=== PATIENT | female | born 1990 | race Caucasian/White ===

== ENCOUNTER → 2018-05-10 19:04 | Outpatient (CLI) | payer OTHER, SELFPAY ==
[2018-05-16 14:39] LABS: HPV Reflexed? NOT INDICATED
== END ==
PROVIDERS: Visit Provider Obstetrics & Gynecology
DX: Z12.4 Encounter for screening for malignant neoplasm of cervix (principal)
CPT/HCPCS: 88175; G0145

== ENCOUNTER → 2018-10-05 11:17 | Outpatient (CLI) | payer OTHER, SELFPAY ==
[2018-10-05 15:26] LABS: hCG Titer Quant., Serum 4946 mIU/mL (<9 non-preg)
== END ==
PROVIDERS: Visit Provider Obstetrics & Gynecology
DX: N92.5 Other specified irregular menstruation (principal)
CPT/HCPCS: 36415; 84702

== ENCOUNTER → 2018-10-12 11:20 | Outpatient (CLI) | payer OTHER, SELFPAY ==
[2018-10-12 13:54] LABS: Hematocrit 38.9 % (37-47); Hemoglobin 13.6 g/dl (12.0-15.0); Mean Corpuscular Hgb 31.5 pg (27.0-32.0); Mean Platelet Vol. 10.1 fl (6.2-12.0); Platelet Count 207 K/mm3 (150-450); RBC Distribution Width CV 12.2 % (11.6-14.6); RBC Distribution Width SD 39.2 fl (35.1-43.9); Red Blood Count 4.32 M/mm3 (4.2-5.4); Scan Indicated on CBC? Y/N NO; White Blood Count 5.2 K/mm3 (4.4-11.0)
[2018-10-12 14:19] LABS: hCG Titer Quant., Serum 14132 mIU/mL (<9 non-preg)
== END ==
PROVIDERS: Visit Provider Obstetrics & Gynecology
DX: O20.0 Threatened abortion (principal); Z3A.00 Weeks of gestation of pregnancy not specified
CPT/HCPCS: 36415; 84702; 85027; 86850; 86900

== ENCOUNTER 2018-10-27 11:35 | Day surgery (SDC) | payer OTHER, SELFPAY ==
--- NOTE | 2018-10-26 20:55 | PCM.HP.STD ---
History of Present Illness Date of Admission: 10/27/18 Chief Complaint: Intrauterine demise of twin at 6 weeks The patient is a 27 year old F at 6 weeks EGA. Spencer-mono twin and demise x 2. Minimal bleeding. Rh+. Past Medical History Allergies No Known Allergies Allergy (Verified 10/26/18 15:11) Home Medications: Ambulatory Orders Medication Instructions Recorded Vits [Prenatabs FA] 1 tablet PO DAILY 10/26/18 Smoking Status: Never smoker Tobacco Use: Non-smoker Review of Systems Constitutional: Denies: Chills, Fever, Weight Change HEENT: Denies: Difficulty Hearing, Difficulty Swallowing, Nasal bleeding, Nasal Congestion, Sore Throat Cardiovascular: Denies: Chest Pain, Palpitations Respiratory: Denies: Shortness of Breath, Wheezing Gastrointestinal: Denies: Constipation, Diarrhea, Nausea, Vomiting Genitourinary: Denies: Dysuria, Frequency, Hematuria, Incontinence, Urgency Musculoskeletal: Denies: Joint Pain, Muscle pain Skin: Denies: Lesions, Skin Changes Neurological: Denies: Focal weakness, Numbness Psychiatric: Denies: Anxiety, Depression Endocrine: Denies: Heat/ Cold Intolerance Hematologic/ Lymphatic: Denies: Easy Bleeding VTE Information - Inpt Only VTE Present on Admission: No VTE Mechan Device Prophylaxis: SCD's VTE Pharm Prophylaxis ordered?: No Reason prophylaxis not ordered:: Treatment Not Indicated Subjective: Healthy appearing female. No distress. - Physical Exam General: Alert, Oriented x3 HEENT: Atraumatic, Normocephalic Oral: Moist Mucosa Neck: Supple Lungs: Clear to auscultation Cardiovascular: Regular rate, Regular Rhythm Abdomen: Bowel Sounds Present, Soft, Non Tender, Non-Distended Extremities: No edema, No Calf Tenderness Skin: No rashes Musculoskeletal: No Muscle Wasting Neurological: Cranial nerves II-XII grossly intact Assessment/Plan 1. IUFD Twin at 6 weeks RH + options for tissue elimination reviewed. Decision for suction D and C. The preop preparation, then intraop procedures and the postop recovery reviewed. The risks of bleeding, infection and other organ damage including bladder, bowel and uterine perforation accepted, reviewed and consented. Blood transfusion if required accepted as well.
--- NOTE | 2018-10-27 | POC_PTH ---
PATIENT: KATHARINE PINZON LOC: [facility] U#:[id number] AGE/SX: 27/F ROOM: RE10/27/[address]: Dr. Glenys Jasso MD : 1990 BED: DIS: 10/27/2018 SPEC #: [id number] RECD: 10/27/18 14:44 STATUS: MELLISA CAROLINE #: [id number] JAMIE: 10/27/18 00:[address]: Glenys Jasso DEPT: SURGICAL PATHOLOGY RECD BY: Riley Cisse ENTERED: 10/27/18 14:44 SP TYPE: PROD CONC OTHR DR: No Primary Care Phys Tissues: Product of conception, NOS Procedures: Surgery Specimen Level IV HEADER OPERATION: Dilation and curettage, suction PRE-OP DIAGNOSIS: Intrauterine demise of twin at six weeks, LMP unknown TISSUE SUBMITTED: Products of conception sent for chromosomal studies MICROSCOPIC DIAGNOSIS Endometrium, curettage: Chorionic villi, decidualized stroma and trophoblastic cells consistent with products of conception. AM:esha 10/30/18 MICROSCOPIC DESCRIPTION Slides are reviewed. GROSS DESCRIPTION Received in fixative is one container labeled with the patient's name and designated products of conception to be sent for chromosomal studies. The specimen consists of multiple irregular fragments of pink-chilel soft tissue that in aggregate measure 5 x 4 x 1 cm. No tissue is identified. Still Cleaner tissue is submitted for chromosomal studies. The rest of the specimen is submitted in three cassettes. / SJ:esha 10/27/18 TC:5 CPT: 10576 ADDENDUM ADDENDUM ADDENDUM ADDENDUM ADDENDUM ADDENDUM ADDENDUM ADDENDUM ADDENDUM 11/09/2018 11:24 ADDENDUM 11/09/2018 11:24 ADDENDUM 11/09/2018 11:24 ADDENDUM 11/09/2018 11:24 ADDENDUM 11/09/2018 11:24 CYTOGENETICS REPORT FROM [employer] INTERPRETATION AND COMMENTS: Karyotype: 47,XY,+16 Abnormal male Karyotype - trisomy 16 Please see complete report in e-chart or EMR for further details
[2018-10-27 12:09] VITALS: BP 109/71; PULSE 80; RESP 16; TEMP 37.2; O2SAT 100; BMI 23.6
[2018-10-27 12:43] LABS: Hematocrit 40.8 % (37-47); Hemoglobin 14.3 g/dl (12.0-15.0); Mean Corpuscular Hgb 31.4 pg (27.0-32.0); Mean Corpuscular Volume 89.7 fL (81-99); Mean Platelet Vol. 9.8 fl (6.2-12.0); Platelet Count 221 K/mm3 (150-450); RBC Distribution Width CV 12.5 % (11.6-14.6); RBC Distribution Width SD 40.1 fl (35.1-43.9); Red Blood Count 4.55 M/mm3 (4.2-5.4); White Blood Count 7.9 K/mm3 (4.4-11.0)
[2018-10-27 13:39] LABS: hCG Titer Quant., Serum 29391 mIU/mL (<9 non-preg)
--- NOTE | 2018-10-27 13:42 | OP.PCM_ITS ---
Problem List (1) First trimester Status: Acute Report of Operation Date of Procedure: 10/27/18 Pre-Operative Diagnosis: 5-6-week intrauterine demise Post-Operative Diagnosis: Same Surgery/Procedure Performed:: Suction D&C Description of Surgical Findings:: Uterus was noted to be approximately 1-1/2 cm in a retroflexed position. Fully mobile. The cervical os was easily dilated to accommodate a 9 Type of Anesthesia:: Local, MAC Anesthesiologist: Jose Lawler Special Medications: Cefotetan and 2 g IV and 1% lidocaine 10 cc placed to the cervix Specimen's removed: Products of conception Drains: None Estimated Blood Loss (mL): Minimal Fluids Replaced: Lactated Ringer Description of Procedure: Patient brought to the operating room and n.p.o. status. She is placed on the operating room table and underwent a monitor placement via a MAC anesthetic. Once found be adequate with a MAC anesthetic, the patient was placed in dorsolithotomy position via the Greg stirrups patient had had several CT and a retroflexed position. Verbalized was then injected with 1% lidocaine in all 4 quadrants and patient tolerated well. The cervical os was then easily dilated to accommodate a 9 mm curved suction device. The question of potential removal and sectioning of the endometrial cavity were correct of conception removal occurred. Questionable tissue occurring this was sent away for pathological evaluation as well as chromosomal evaluation at [facility]. Is slight and gentle curettage the entire endometrial cavity occurred and that tissue was also sent away for pathological evaluation with suction once again. He was vagina. Sponge instrument counts were correct x2 patient was awakened in stable condition taken to recovery room to be discharged home later today Grafts/Implants Used: None - Complications None - Admit VTE Documentation VTE Present on Admission: No VTE Mechan Device Prophylaxis: SCD's VTE Pharm Prophylaxis ordered?: No Reason prophylaxis not ordered:: Treatment Not Indicated
--- NOTE | 2018-10-27 13:46 | DCINST_ITS ---
Discharge Diet: No Restrictions - Increase water intake to a minimum of 100cc daily times 3 days Discharge Activity: Return to Normal Activity, May Shower, May Take a Tub Bath - in 2 weeks. May shower in (days): 0 - TODAY May resume sexual activity in: 2 weeks Weight Bearing Status: Full weight bearing Lifting Restrictions: none Call your doctor if your incision/area has: Sudden Increased Bleeding Call your doctor if you observe: Fever of 101 or Higher, Inability to urinate, Inability to have a bowel movement, Using more than one pad per hour Cleanse incision/area with: Soap & Water Allergies/Adverse Reactions: Allergies No Known Allergies Allergy (Verified 10/26/18 15:11) Medications to take at Discharge Vits [Prenatabs FA] 1 tablet PO DAILY 10/26/18 Folic Acid 0.8 mg PO DAILY 10/27/18 Primary Care Physician: Care Physician,No Primary [Primary Care Provider] - Test Results: Test results from this visit will be discussed in further detail at your follow- up appointment, if applicable. Please Follow Up With: Glenys Jasso MD When: next week
[2018-10-27 13:47] VITALS: BP 109/71; BP 110/74; PULSE 75; RESP 14; TEMP 37.3; O2SAT 100
[2018-10-27 13:51] LABS: Scan Indicated on CBC? Y/N NO
[2018-10-27 14:00] VITALS: BP 108/69; BP 109/71; PULSE 68; RESP 14; O2SAT 100
[2018-10-27 14:20] VITALS: BP 109/71; BP 115/89; PULSE 75; RESP 14; TEMP 36.8; O2SAT 100
[2018-10-27 15:02] VITALS: BP 109/71
== END 2018-10-27 15:02 | disposition home or self-care (01) ==
LOC: SDC 11:37 → AC 11:39
PROVIDERS: Referring Provider Obstetrics & Gynecology; Visit Provider Obstetrics & Gynecology
PROC: (CPT 59820; principal; 2018-10-27 12:45)
DX: O02.1 Missed abortion (principal); O30.011 Twin pregnancy, monochorionic/monoamniotic, first trimester; Z3A.01 Less than 8 weeks gestation of pregnancy
CPT/HCPCS: 59820; 84702; 85027; 88305; J7120; J2405

== ENCOUNTER → 2019-01-15 09:30 | Outpatient (CLI) | payer OTHER, SELFPAY ==
[2019-01-15 09:00] VITALS: BMI 23.6
[2019-01-15 11:16] LABS: Rubella IgG > 500.0 IU/mL
== END ==
PROVIDERS: Referring Provider Obstetrics & Gynecology; Visit Provider Obstetrics & Gynecology
DX: Z78.9 Other specified health status (principal)
CPT/HCPCS: 36415; 86762

== ENCOUNTER → 2019-03-21 12:19 | Outpatient (CLI) | payer OTHER, SELFPAY ==
[2019-01-15 09:00] VITALS: BMI 23.6
[2019-03-21 12:57] LABS: hCG Titer Quant., Serum 123 mIU/mL (1-3)
== END ==
PROVIDERS: Referring Provider Obstetrics & Gynecology; Visit Provider Obstetrics & Gynecology
DX: O09.299 Supervision of pregnancy with other poor reproductive or obstetric history, unspecified trimester (principal)
CPT/HCPCS: 36415; 84702

== ENCOUNTER → 2019-03-23 11:23 | Outpatient (CLI) | payer OTHER, SELFPAY ==
[2019-01-15 09:00] VITALS: BMI 23.6
[2019-03-23 12:43] LABS: hCG Titer Quant., Serum 337 mIU/mL (1-3)
== END ==
PROVIDERS: Referring Provider Obstetrics & Gynecology; Visit Provider Obstetrics & Gynecology
DX: O09.299 Supervision of pregnancy with other poor reproductive or obstetric history, unspecified trimester (principal); Z3A.00 Weeks of gestation of pregnancy not specified
CPT/HCPCS: 36415; 84702

== ENCOUNTER → 2019-03-29 11:39 | Outpatient (CLI) | payer OTHER, SELFPAY ==
[2019-01-15 09:00] VITALS: BMI 23.6
[2019-03-29 12:37] LABS: hCG Titer Quant., Serum 4193 mIU/mL (1-3)
== END ==
PROVIDERS: Nurse Practitioner Women's Health; Referring Provider Obstetrics & Gynecology; Visit Provider Obstetrics & Gynecology
DX: N91.2 Amenorrhea, unspecified (principal)
CPT/HCPCS: 36415; 84702

== ENCOUNTER → 2019-04-03 16:20 | Outpatient (CLI) | payer OTHER, SELFPAY ==
[2019-04-03 14:13] VITALS: BMI 23.6
[2019-04-03 18:33] LABS: Chlamydia Trachomatis by PCR Negative (Negative); Neisserai gonorrhoeae by PCR Negative (Negative); Probe Check PASS; Sample Adequacy Control PASS; Specimen Processing Control PASS
[2019-04-09 12:20] LABS: HPV Reflexed? NOT INDICATED
== END ==
PROVIDERS: Referring Provider Obstetrics & Gynecology; Visit Provider Obstetrics & Gynecology
DX: O09.90 Supervision of high risk pregnancy, unspecified, unspecified trimester (principal); Z12.4 Encounter for screening for malignant neoplasm of cervix
CPT/HCPCS: 87086; 87088; 87491; 87591; 88175; G0145

== ENCOUNTER → 2019-05-02 14:45 | Outpatient (CLI) | payer OTHER, SELFPAY ==
[2019-04-20 12:14] VITALS: BMI 23.6
[2019-05-02 15:46] LABS: Absolute Lymphocyte Count 1.83 X10^3/uL (0.83-4.51); Absolute Neutrophil Count 6.1 X10^3/uL (2.0-7.7); Basophil# 0.01 X10^3/uL; Basophil% 0.1 % (0-1); Eosinophil# 0.08 X10^3/uL; Eosinophils% 0.9 % (0-5); Hematocrit 39.8 % (37-47); Hemoglobin 13.8 g/dL (12.0-15.0); Lymphocyte # 1.83 X10^3/ul (4.0); Lymphocyte % 21.5 % (19-41); Mean Corp Hgb Conc 34.7 g/dL (32-36); Mean Corpuscular Hgb 31.4 pg (27.0-32.0); Mean Corpuscular Volume 90.7 fL (81-99); Mean Platelet Vol. 9.6 fl (6.2-12.0); Monocyte# 0.46 X10^3/uL; Monocyte% 5.4 % (0-10); NRBC Flagged by Analyzer 0 % (0-5); Neutrophil # 6.09 X10^3/uL (2.7-7.7); Neutrophil % 71.7 % (47-70); Platelet Count 198 K/mm3 (150-450); RBC Distribution Width CV 11.8 % (11.6-14.6); Red Blood Count 4.39 M/mm3 (4.2-5.4); White Blood Count 8.5 K/mm3 (4.4-11.0)
[2019-05-03 10:55] LABS: HIV - WCH Non-Reactive (Nonreactive); Hepatitis B Surface Antigen Non-Reactive (Nonreactive); Rubella IgG > 500.0 IU/mL
[2019-05-04 01:55] LABS: Rapid Plasmin Reagin (RPR) NONREACTIVE (NONREACTIVE)
== END ==
PROVIDERS: Obstetrics & Gynecology; Referring Provider Nurse Practitioner Women's Health; Visit Provider Nurse Practitioner Women's Health
DX: Z34.81 Encounter for supervision of other normal pregnancy, first trimester (principal); Z31.430 Encounter of female for testing for genetic disease carrier status for procreative management
CPT/HCPCS: 36415; 85025; 86592; 86703; 86762; 86850; 86900; 86901; 87340

== ENCOUNTER → 2019-07-30 17:41 | Outpatient (CLI) | payer OTHER, SELFPAY ==
[2019-07-30 16:02] VITALS: BMI 23.6
== END ==
PROVIDERS: Visit Provider Nurse Practitioner Women's Health
DX: N76.0 Acute vaginitis (principal)
CPT/HCPCS: 87070; 87086; 87106; 87205

== ENCOUNTER 2019-08-07 11:15 | Outpatient (CLI) | payer OTHER, SELFPAY ==
[2019-07-30 16:02] VITALS: BMI 23.6
[2019-08-07 11:15] VITALS: BMI 24.7
--- NOTE | 2019-08-07 12:05 | US_ITS ---
STUDY: SECOND AND THIRD TRIMESTER OBSTETRICAL ULTRASOUND - LIMITED REASON FOR EXAM: Female, 28 years old bleeding w/ -- no biometrics -- TVG exam for cx also LMP: February 18, 2019. PRIOR ULTRASOUND: None. TECHNIQUE: Transabdominal and Transvaginal TECHNICAL QUALITY: Adequate. FINDINGS: There is a single intrauterine fetus. The fetus is in a breech presentation. There is demonstrated cardiac activity with a heart rate of 134 bpm. There is a normal amniotic fluid volume. The largest amniotic fluid pocket measures 4.6 x 4.5 cm. The amniotic fluid index (DARIANA) is within normal limits. The placenta is posterior in location and is not low lying. There are Grade 0 placental changes. The cervix measures 3.2 cm in length. Anechoic fluid is seen within the cervical canal. BIOMETRY: Age by LMP: 24 weeks, 2 days. LATONYA by LMP: November 25, 2019. US/OB Limited (No Biometrics) IMPRESSION: Single live intrauterine gestation. The amniotic fluid is normal. A small amount of fluid is seen within the cervical canal. Electronically Signed: Tonny Curry, at 13:18 EST , Service support ,
[2019-08-07 12:36] LABS: Absolute Neutrophil Count 8.3 X10^3/uL (2.0-7.7); Basophil# 0.02 X10^3/uL; Basophil% 0.2 % (0-1); Eosinophil# 0.09 X10^3/uL; Eosinophils% 0.9 % (0-5); Hematocrit 38.7 % (37-47); Hemoglobin 13.2 g/dL (12.0-15.0); Lymphocyte % 12.8 % (19-41); Mean Corp Hgb Conc 34.1 g/dL (32-36); Mean Corpuscular Hgb 31.9 pg (27.0-32.0); Mean Corpuscular Volume 93.5 fL (81-99); Mean Platelet Vol. 9.7 fl (6.2-12.0); Monocyte# 0.41 X10^3/uL; NRBC Flagged by Analyzer 0 % (0-5); Neutrophil # 8.31 X10^3/uL (2.7-7.7); Neutrophil % 81.7 % (47-70); Platelet Count 191 K/mm3 (150-450); RBC Distribution Width CV 12.8 % (11.6-14.6); RBC Distribution Width SD 43.7 fl (35.1-43.9); Red Blood Count 4.14 M/mm3 (4.2-5.4); White Blood Count 10.2 K/mm3 (4.4-11.0)
[2019-08-07 12:40] LABS: Fibrinogen 297 mg/dl (203-444)
--- NOTE | 2019-08-08 07:58 | OB.TRI.PN ---
Progress Notes Date of Service: 08/07/19 Progress Note: Patient seen for vaginal bleeding. Upon exam there is a small amount of blood in the vault but cervix was closed thick and high. No contractions were noted on the monitor and CBC was within normal limits. Fibrinogen was low normal and ultrasound showed a small amount of blood in the cervical canal but no abnormalities to the or placenta. heart tones were present and reassuring. Reassurance provided to the patient that bleeding may be due to cervical ectropion plan follow-up in the office in several days will repeat fibrinogen level if bleeding is persistent. Reviewed bleeding precautions with patient Laboratory Studies: Laboratory Tests 08/07/19 08/07/19 Range/Units 12:20 12:20 WBC 10.2 (4.4-11.0) K/mm3 RBC 4.14 L (4.2-5.4) M/mm3 Hgb 13.2 (12.0-15.0) g/dL Hct 38.7 (37-47) % MCV 93.5 (81-99) fL MCH 31.9 (27.0-32.0) pg MCHC 34.1 (32-36) g/dL RDW Std Deviation 43.7 (35.1-43.9) fl RDW Coeff of Mario 12.8 (11.6-14.6) % Plt Count 191 (150-450) K/mm3 MPV 9.7 (6.2-12.0) fl Immature Gran % (Auto) 0.400 (0.0-0.9) % Neut % (Auto) 81.7 H (47-70) % Lymph % (Auto) 12.8 L (19-41) % Sevier % (Auto) 4.0 (0-10) % Eos % (Auto) 0.9 (0-5) % Baso % (Auto) 0.2 (0-1) % Absolute Neuts (auto) 8.3 H (2.0-7.7) X10^3/uL Absolute Lymphs (auto) 1.30 (0.83-4.51) X10^3/uL Nucleated RBC % 0 (0-5) % Fibrinogen 297 (203-444) mg/dl - Problem List (1) Vaginal bleeding Status: Acute Comment: fibrinogen level low normal, bleeding likely from ectropion. fu in office, consider repeat fibrinogen Multi Select Codes - Urinary/Genital Urinary/Genital CPT Codes: Other Procedure See Report - report visit no charge
== END 2019-08-07 13:30 | disposition home or self-care (01) ==
LOC: WPOUT 11:28 → OBT 11:29
PROVIDERS: Referring Provider Obstetrics & Gynecology; Visit Provider Obstetrics & Gynecology
DX: O46.90 Antepartum hemorrhage, unspecified, unspecified trimester (principal); Z3A.00 Weeks of gestation of pregnancy not specified
CPT/HCPCS: 36415; 59025; 59050; 76815; 76817; 85025; 85384; 99218; G0378

== ENCOUNTER → 2019-09-07 16:34 | Outpatient (CLI) | payer OTHER, SELFPAY ==
[2019-09-07 16:02] VITALS: BMI 24.7
[2019-09-07 17:17] LABS: Basophil# 0.01 X10^3/uL; Basophil% 0.1 % (0-1); Eosinophil# 0.11 X10^3/uL; Eosinophils% 1.2 % (0-5); Hematocrit 34.9 % (37-47); Lymphocyte % 17.3 % (19-41); Mean Corp Hgb Conc 34.4 g/dL (32-36); Mean Corpuscular Hgb 31.7 pg (27.0-32.0); Mean Corpuscular Volume 92.3 fL (81-99); Monocyte# 0.49 X10^3/uL; Monocyte% 5.3 % (0-10); NRBC Flagged by Analyzer 0 % (0-5); Neutrophil # 7.02 X10^3/uL (2.7-7.7); Neutrophil % 75.8 % (47-70); Platelet Count 180 K/mm3 (150-450); RBC Distribution Width CV 12.3 % (11.6-14.6); RBC Distribution Width SD 41.8 fl (35.1-43.9); Red Blood Count 3.78 M/mm3 (4.2-5.4); White Blood Count 9.3 K/mm3 (4.4-11.0)
[2019-09-07 18:01] LABS: Glucose Challenge Gest 1H 50g 127 mg/dL (70-140)
== END ==
PROVIDERS: Referring Provider Obstetrics & Gynecology; Visit Provider Obstetrics & Gynecology
DX: O09.90 Supervision of high risk pregnancy, unspecified, unspecified trimester (principal)
CPT/HCPCS: 36415; 82950; 85025

== ENCOUNTER → 2019-11-07 14:49 | Outpatient (CLI) | payer OTHER, SELFPAY ==
[2019-11-07 13:17] VITALS: BMI 24.7
== END ==
PROVIDERS: Visit Provider Nurse Practitioner Women's Health
DX: O09.90 Supervision of high risk pregnancy, unspecified, unspecified trimester (principal)
CPT/HCPCS: 87081

== ENCOUNTER 2019-11-26 15:05 | Inpatient (IN) | payer OTHER, SELFPAY ==
[2019-11-26] VITALS (36 sets, daily range): BP systolic 112–162; BP diastolic 56–112; PULSE 72–116; TEMP 36.4–37.2; O2SAT 73–100; BMI 24.7; BMI 28.0
[2019-11-26] MEDS: Lactated Ringers 1,000 ML 50 ML IV (15:44)
[2019-11-26 16:03] LABS: Basophil# 0.01 X10^3/uL; Basophil% 0.1 % (0-1); Eosinophil# 0.01 X10^3/uL; Eosinophils% 0.1 % (0-5); Hemoglobin 14.1 g/dL (12.0-15.0); Lymphocyte % 12.9 % (19-41); Mean Corp Hgb Conc 34.4 g/dL (32-36); Mean Corpuscular Hgb 31.8 pg (27.0-32.0); Mean Corpuscular Volume 92.3 fL (81-99); Mean Platelet Vol. 10.8 fl (6.2-12.0); Monocyte# 0.39 X10^3/uL; Monocyte% 3.6 % (0-10); NRBC Flagged by Analyzer 0 % (0-5); Neutrophil # 9.03 X10^3/uL (2.7-7.7); Platelet Count 192 K/mm3 (150-450); RBC Distribution Width CV 13.2 % (11.6-14.6); RBC Distribution Width SD 44.3 fl (35.1-43.9); Red Blood Count 4.44 M/mm3 (4.2-5.4); White Blood Count 10.9 K/mm3 (4.4-11.0)
--- NOTE | 2019-11-26 16:47 | HP.PCM_ITS ---
- Problem List (1) Anxiety disorder affecting , antepartum Status: Acute Comment: Celexa, counseling encouraged (2) Family history of pyloric stenosis Status: Acute Comment: brother and nephew. 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 Nl US (5) Supervision of high risk , antepartum Status: Acute Comment: PRR LATONYA 11/25/19 Spouse: Luis Enrique History and Physical Date of Admission: 11/26/19 Intake Vital Signs 11/26/19 BMI 24.7 11/26/19 Height 5 ft 3 in 11/26/19 BMI 24.7 Intake Visit Reasons: SM to check pt, pt in labor Chief Complaint: est ob Log Inspector Required: No Is patient in pain?: No Allergies No Known Allergies Allergy (Verified 11/26/19 14:31) Medications Vits [Prenatabs FA] 1 tab PO DAILY 10/26/18 [History Confirmed 11/23/19] citalopram 20 mg tablet 20 mg PO DAILY #30 tab 05/23/19 [Rx Confirmed 11/26/19] Last Menstral Period: 02/18/19 Zika: Zika virus screening: Negative : No PFSH PFSH Medical History History of genetic disorder (Acute) Seasonal allergies (Acute) Surgical History S/P dilation and curettage (Acute ~10/27/18) S/P wisdom tooth extraction (Resolved) Family History Father Diabetes Thyroid cancer Social History (Updated 11/26/19 @ 14:[address] 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 sexually active: Yes Smoking Status: Never smoker second hand exposure: No alcohol intake: current details: occasionally substance use type: does not use caffeine: Yes what type of physical activity do you participate in: aerobics frequency: 3-4 times per week seatbelt use: always do you feel safe at home: Yes additional social history: -Luis Enrique- [employer] Patient works at [employer] Pregancy History 2 Elective abortions Hx Para 0 Spontaneous abortions 1 Hx # Term Pregnancies Ectopic pregnancies Hx # Pregnancies Multiple births # of living children HPI to check pt, pt in labor: Details: KATHARINE PINZON is a 28 year old at 40 weeks 1 day presents in active labor 7 cm dilated. She has been having contractions for the last 10 hours. She has had some bloody show but no loss of fluid. Admits good movement. OB Visit LATONYA Calculator Estimated Delivery Date Method Current WG Current Estimate 11/25/19 LMP (Certain) 40w 1d Other Estimates 11/27/19 Ultrasound #1 39w 6d Expected Delivery Route/Plan Labor Preferences- labor support person: Luis Enrique pain management options preferred: epidural cut cord/dad catch: maybe : yes PP control planned: [] discussed possible routes of delivery and associated risks: [] special requests: [] Specific Issue/Plans flu vaccine: given tdap vaccine: given rhogam: na LARC form signed: declined movement and labor precautions reviewed. Problem list reviewed and updated with the most current plan of care details and appropriate orders placed. Relevant counseling for the gestational age provided. Continue routine care and follow up unless otherwise noted in visit notes/problem list details Initial Weight: 129 lb Date EGA Weight BP Urine Prot Glucose FHR FuHt Pres Dilation Effaced St Visit Note 04/06/19 6w 5d 126 lb (-3 lb) 110/60 Trace Negative 165 viable iup seen no issues, reviewed bleeding precautions fu as scheduled 04/20/19 8w 5d 131 lb 4 oz (+2 lb 4 oz) 122/86 Negative Negative 160 no more vb doing well 05/14/19 12w 1d 130 lb 8 oz (+1 lb 8 oz) 90/60 Negative Negative 168 No vB, LOF. 06/15/19 16w 5d 135 lb 8 oz (+6 lb 8 oz) 115/72 Negative Negative 150 07/13/19 20w 5d 135 lb (+6 lb) 108/72 Negative Negative 156 No VB, LOF. Reviewed nl anatomy US. 07/30/19 23w 1d 142 lb 6 oz (+13 lb 6 oz) 110/70 Negative Negative 154 0 Work in for vaginal pressure. Hx of UTI in past also thinks hemorrhoid. See exam 08/10/19 24w 5d 140 lb 6 oz (+11 lb 6 oz) 112/66 Negative Negative 150 SM- no vb lof good fm no regular ctx. seen in triage for bleeding but none since 09/07/19 28w 5d 146 lb (+17 lb) 102/66 Negative Negative 145 28 SM- no vb lof good fm no regular ctx cbc gct tdap 09/21/19 30w 5d 149 lb (+20 lb) 110/70 Negative Negative 140 31 SM- no vb lof good fm no regular ctx 10/05/19 32w 5d 150 lb (+21 lb) 102/58 Negative Negative 140 33 SM- no vb lof good fm no regular ctx 10/19/19 34w 5d 154 lb (+25 lb) 106/58 Negative Negative 140 34 SM- no vb lof fm no regular ctx 10/25/19 35w 4d 154 lb (+25 lb) 102/64 Negative Negative 148 35 MH-no VB, LOF. Good FM Doing well 11/07/19 37w 3d 155 lb (+26 lb) 104/60 Negative Negative 138 37 Cephalic 2 50 -2 MH-Good FM. No reg CTX. N o VB, LOF. GBS. MH-Good FM. No reg CTX. No VB, LOF. GBS. Anxiety controlled with celexa 11/16/19 38w 5d 156 lb (+27 lb) 102/70 130 38 Cephalic SM- no vb lof good fm no regular ctx 11/23/19 39w 5d 100/62 Negative Negative 160 38 Cephalic 3 80 -1 SM- no vb lof good fm no regular ctx 11/26/19 40w 1d 7 90 -1 SM- co regular ctx, some vb lof Notes Visit Date: 11/26/19 ??No visit notes to display Visit Date: 11/23/19 ??No visit notes to display Visit Date: 11/16/19 ??No visit notes to display Visit Date: 11/07/19 ??No visit notes to display Visit Date: 10/25/19 ??No visit notes to display Visit Date: 10/19/19 ??No visit notes to display Visit Date: 10/05/19 ??No visit notes to display Visit Date: 09/21/19 ??No visit notes to display Visit Date: 09/07/19 ??No visit notes to display Visit Date: 08/10/19 ??No visit notes to display Visit Date: 07/30/19 ??No visit notes to display Visit Date: 07/13/19 ??No visit notes to display Visit Date: 06/15/19 ??No visit notes to display Visit Date: 05/14/19 ??No vB, LOF. ??Paulette Bailey NP-C on 05/14/19 Visit Date: 04/20/19 ??no more vb doing well ??Carina Ramirez MD on 04/20/19 Visit Date: 04/06/19 ??viable iup seen no issues, reviewed bleeding precautions fu as scheduled ??Carina Ramirez MD on 04/11/19 ACOG First Trimester First Trimester: Desire for , Alcohol, Tobacco Cessation, Illicit/Recreational Drug/Substance Use, Intimate Partner Violence, Barriers to care, Unstable Housing, Communication Barriers, Environmental/Work Hazards, Anticipated Course of Care, Toxoplasmosis Precations, Use of Any medications, Sexual activity, Exercise, Dental Care, Sauna/Hot tub use, Seat Belt use, Childbirth classes/Hospital facilities, , Travel, Indications for US and Screening for Aneuploidy Second Trimester Second Trimester: Signs and Symptoms of Labor, Selecting a care provider, Reproductive Life Planning, Care Planning, Tobacco Cessation, Depression/Anxiety and Intimate Partner Violence Third Trimester Third Trimester: Pain Management Plans, Labor support person(s), Immediate Larc, Movement Monitoring and Feeding Yes ; discussed Trial of Labor after Counseling or discussed Circumcision preference Diagnostics Diagnostics Diagnostics Glucose 1 Hr 50 gm 127 mg/dL (70-140) 09/07/19 Hgb 12.0 g/dL (12.0-15.0) 09/07/19 Hct 34.9 % (37-47) L 09/07/19 Details: HIV: Urine Culture: Sequential Screen: NIPT Screen: ROS Const Reports system reviewed and no additional complaints, except as docu Card Reports system reviewed and no additional complaints, except as docu Resp Reports system reviewed and no additional complaints, except as docu GI Reports system reviewed and no additional complaints, except as docu, Reports nausea Reports system reviewed and no additional complaints, except as docu Musc Reports system reviewed and no additional complaints, except as docu Exam Const General: cooperative, healthy appearing, comfortable, anxious HENAZ Head: normal to inspection Nose: external nose normal Face and sinus: normal facial exam Neck Neck: normal visual inspection, full ROM, no lymphadenopathy Thyroid: thyroid normal Chest Chest palpation & inspection: normal inspection of the chest Resp Effort & Inspection: normal respiratory effort GI Inspection: normal to inspection Palpation: soft, other (gravid uterus) Other: vertex and appropriate size for gestational age Other: Cervical Exam: Extrem General: pedal edema Assessment & Plan Problems 1. Family history of pyloric stenosis Z83.79 2. Anxiety disorder affecting , antepartum O99.340; F41.9 3. History of genetic disorder Z87.898 4. Supervision of high risk , antepartum O09.90 5. 40 weeks gestation of Z3A.40 admit IAL 40w1d minimal intervention preferred arom light mec Coding Level of Care Code OB Routine Diagnoses Family history of pyloric stenosis Z83.79 Anxiety disorder affecting , antepartum O99.340; F41.9 History of genetic disorder Z87.898 Supervision of high risk , antepartum O09.90 40 weeks gestation of Z3A.40 ??Weeks of gestation: 40 weeks Essential Procedure Criteria Procedure Essential: Yes Criteria Note: On 10/09/2019 the [place] Department of Health ([facility]) Public Order signed by [facility] Director Maryanne Win M.D., regarding the Management of Non- Essential Surgeries and Procedures for the purpose of preserving Personal Protective Equipment (PPE) and critical hospital capacity and resources within [place] went into effect as of 10/10/2019 at 5:00PM. According to the [facility] Public Order: This action will remain in full force and effect until the State of Emergency declared by the Governor no longer exists or the Director of the [facility] rescinds or modifies this Order.. This [facility] order stated all non-essential or elective surgeries and procedures that utilize PPE should be delayed unless there is undue risk to the current or future health of a patient. After reviewing the aforementioned [facility] Public Order and the patients clinical case, I have determined that the scheduled procedure meets the criteria to go forward. Risk to Patient if Procedure Delayed: Threat to patient's life if surgery or procedure is delayed
[2019-11-26] MEDS: Ondansetron 4 MG/2 ML Vial IV (17:04)
[2019-11-26] MEDS: Lactated Ringers 500 ML 999 ML IV (17:38)
[2019-11-26] MEDS: Oxytocin 30 units/NS 500 ml 30 UNITS/500 ML IV.SOLN 334 UNITS IV (19:07)
--- NOTE | 2019-11-26 19:34 | PCM.OPRPT ---
Problem List (1) Anxiety disorder affecting , antepartum Status: Acute Comment: Celexa, counseling encouraged (2) Family history of pyloric stenosis Status: Acute Comment: brother and nephew. 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 Nl US (5) Supervision of high risk , antepartum Status: Acute Comment: PRR LATONYA 11/25/19 Spouse: Luis Enrique Vaginal Delivery Maternal Presentation: Active Labor 28-year-old G2, P0 at 40 weeks 1 day presents in active labor 7 cm dilated. Medical Reason for Induction: Post term Amniotic Membrane Rupture Type: Artificial Amniotic Fluid Description: Lightly stained meconium Final LATONYA: 11/25/19 Gestational age: 40 Weeks and 1 Days Date of Procedure: 11/26/19 Pre-Operative Diagnosis: In active labor, prolonged decelerations to the 60s Post-Operative Diagnosis: same Surgery/ Procedure Performed: Vacuum Assisted Vaginal Delivery Type of Anesthesia: Epidural Description of Procedure: Patient began pushing and head was in the +3 station and then she developed recurrent heart rate decelerations into the 60s despite position changes. Decision for an operative vaginal delivery and a vacuum was applied after the head was noted to be JIMMY. Pulls were made with 2 contractions with 1 pop-off total duration 4 minutes. Head delivered without complication. Anterior and posterior shoulders delivered immediately following and rest of the infant delivered. was placed on the maternal abdomen delayed cord clamping for 30 seconds and then it was clamped and cut. was evaluated by the legal librarian. Apgars were 8 and 9. Second-degree perineal laceration was noted and repaired in the usual fashion with 3-0 Vicryl repeat. EBL 400 cc placenta delivered spontaneously immediately following is noted be intact and with three-vessel cord. Presentation: JIMMY Placental Delivery Description: Spontaneous Placenta Disposition: [facility] Cord Vessel Description: 3 Vessels Cord Entanglement: None Estimated Blood Loss: 400 A gender: Male (1 minute): 8 (5 minute): 9 Episiotomy Description: None Laceration: Perineal Extension/lac, 2nd degree Medications given after delivery: IV Pitocin Complications: None Multi Select Codes - Urinary/Genital Urinary/Genital CPT Codes: 70812 Vaginal Delivery [facility]
[2019-11-27 00:30] VITALS: BP 121/73; PULSE 88; RESP 15; TEMP 36.7; O2SAT 97
[2019-11-27] MEDS: Acetaminophen 500 MG Tablet 1000 MG PO (00:35)
[2019-11-27] MEDS: oxyCODONE 5 MG Tablet PO ×3 (04:07→13:58)
[2019-11-27 04:59] VITALS: BP 109/68; PULSE 81; RESP 16; TEMP 36.8
[2019-11-27] MEDS: Naproxen 250 MG Tablet 500 MG PO ×2 (06:24→18:40)
[2019-11-27 08:57] VITALS: BP 104/59; PULSE 80; RESP 18
--- NOTE | 2019-11-27 10:19 | DCINST_ITS ---
Discharge Diet: No Restrictions Discharge Activity: Return to Normal Activity, May not drive while taking narcotic pain medications., May Shower May resume sexual activity in: 4-6 weeks Call your doctor if your incision/area has: Continuous Slow Oozing, Sudden Increased Bleeding, Increased Pain/ Swelling, Increased Redness, Foul Smelling Discharge Additional Instructions: If you experience any of the following, contact your healthcare provider. * Bleeding that soaks a pad every hour for 2 hours * Fever 100.4 or higher * Unrelieved incision or abdominal pain * Swelling, redness, discharge or bleeding from your incision or episiotomy site * Your incision begins to separate * Problems urinating (including inability to urinate or burning while urinating). * Visual changes * Severe headache * Flu-like symptoms * Pain or redness in one of both of your breasts * Pain, warmth, tenderness or swelling in your legs, especially the calf area * Frequent nausea and vomiting * Symptoms of depression or anxiety If you experience any of the following, call 911 or go to the nearest Emergency Room. * Chest pain * Problems breathing * Seizure activity * Partial or complete paralysis of a body part, slurred speech, weakness or drooping of the face, or a sudden inability to walk or hold your balance Allergies/Adverse Reactions: Allergies No Known Allergies Allergy (Verified 11/26/19 15:21) Medications to take at Discharge Vits [Prenatabs FA] 1 tab PO DAILY 10/26/18 Citalopram [Celexa] 20 mg PO DAILY 11/26/19 Please Follow Up With: Carina Ramirez MD - [phone] When: Call to make an appointment with your doctor in 6 weeks. If you had elevated Blood pressure or 4th degree laceration you will need to be seen in 2 weeks. Primary Care Physician: Care Physician,No Primary [Primary Care Provider] - Test Results: Test results from this visit will be discussed in further detail at your follow- up appointment, if applicable.
--- NOTE | 2019-11-27 10:19 | PCM.DCVAG ---
Discharge Diet: No Restrictions Discharge Activity: Return to Normal Activity, May not drive while taking narcotic pain medications., May Shower May resume sexual activity in: 4-6 weeks Call your doctor if your incision/area has: Continuous Slow Oozing, Sudden Increased Bleeding, Increased Pain/ Swelling, Increased Redness, Foul Smelling Discharge Additional Instructions: If you experience any of the following, contact your healthcare provider. Bleeding that soaks a pad every hour for 2 hours Fever 100.4 or higher Unrelieved incision or abdominal pain Swelling, redness, discharge or bleeding from your incision or episiotomy site Your incision begins to separate Problems urinating (including inability to urinate or burning while urinating). Visual changes Severe headache Flu-like symptoms Pain or redness in one of both of your breasts Pain, warmth, tenderness or swelling in your legs, especially the calf area Frequent nausea and vomiting Symptoms of depression or anxiety If you experience any of the following, call 911 or go to the nearest Emergency Room. Chest pain Problems breathing Seizure activity Partial or complete paralysis of a body part, slurred speech, weakness or drooping of the face, or a sudden inability to walk or hold your balance Allergies/Adverse Reactions: Allergies No Known Allergies Allergy (Verified 11/26/19 15:21) Medications to take at Discharge Vits [Prenatabs FA] 1 tab PO DAILY 10/26/18 Citalopram [Celexa] 20 mg PO DAILY 11/26/19 Please Follow Up With: Carina Ramirez MD - [phone] When: Call to make an appointment with your doctor in 6 weeks. If you had elevated Blood pressure or 4th degree laceration you will need to be seen in 2 weeks. Primary Care Physician: Care Physician,No Primary [Primary Care Provider] - Test Results: Test results from this visit will be discussed in further detail at your follow-up appointment, if applicable.
--- NOTE | 2019-11-27 10:20 | PCM.PN.OB ---
Subjective: doing well no complaints pain controlled no CP SOB N V ambulating well tolerating po lochia moderate, going well - Physical Exam Vitals/I&O's: Vital Signs Temp Pulse Resp BP Pulse Ox 98.3 F 80 18 104/59 L 97 11/27/19 04:59 11/27/19 08:57 11/27/19 08:57 11/27/19 08:57 11/27/19 00:30 Oxygen Delivery Method Room Air Weight: 158 lb 4.67 oz Body Mass Index (BMI) 28.0 Intake and Output for Last 24 Hours 11/25/19 11/26/19 11/27/19 23:59 23:59 23:59 Intake Total 1169.17 / 1169.17 Balance 1169.17 / 1169.17 General: Alert, Oriented x3 Laboratory Results 11/26/19 15:47: WBC 10.9, RBC 4.44, Hgb 14.1, Hct 41.0, MCV 92.3, MCH 31.8, MCHC 34.4, RDW Std Deviation 44.3 H, RDW Coeff of Mario 13.2, Plt Count 192, MPV 10.8, Immature Gran % (Auto) 0.300, Neut % (Auto) 83.0 H, Lymph % (Auto) 12.9 L, [place] % (Auto) 3.6, Eos % (Auto) 0.1, Baso % (Auto) 0.1, Absolute Neuts (auto) 9.0 H, Absolute Lymphs (auto) 1.40, Nucleated RBC % 0 11/26/19 15:47: Blood Type A POSITIVE, Antibody Screen NEGATIVE Current Medications Acetaminophen (Tylenol) 1,000 mg PO Q8H PRN PRN PRN Reason: Pain Score 1-3/10 Last Admin: 11/27/19 00:35 Dose: 1,000 mg Documented by: Bisacodyl (Dulcolax) 10 mg RECTAL UD PRN PRN Reason: If no BM Citalopram Hydrobromide (Celexa) 20 mg PO DAILY XOCHITL Dibucaine (Dibucaine) 1 applic TOPICAL TID PRN PRN; Protocol PRN Reason: Discomfort Hydrocortisone (Hytone) 1 applic TOPICAL TID PRN PRN; Protocol PRN Reason: Discomfort Methylergonovine Maleate (Methergine) 0.2 mg IM X1 PRN PRN Reason: Excess bleeding/uterine atony Naproxen (Naprosyn) 500 mg PO Q8H PRN PRN PRN Reason: Pain Score 1-3/10 Last Admin: 11/27/19 06:24 Dose: 500 mg Documented by: Ondansetron HCl (Zofran) 4 mg IV Q4H PRN PRN PRN Reason: Nausea Oxycodone HCl (Oxyir) 5 - 10 mg PO Q4H PRN PRN PRN Reason: Pain Score 4-10/10 Last Admin: 11/27/19 08:47 Dose: 10 mg Documented by: Multivit/Folic Acid/Iron (Prenatabs Fa) 1 tablet PO DAILY@1200 XOCHITL Senna/Docusate Sodium (Senokot-S, Faith-Colace) 1 - 2 tablet PO DAILY PRN PRN PRN Reason: Constipation Simethicone (Mylicon) 80 mg PO PCHS PRN PRN Reason: Indigestion/Stomach pain Sodium Chloride () 5 - 15 ml IV UD PRN PRN Reason: SALINE FLUSH Medical Necessity - Tobacco Use Smoking Status: Never smoker Assessment/Plan All Active Problems (Last Reviewed 11/26/19 @ 14:31 by Krystina Stephens) Family history of pyloric stenosis (Acute) Anxiety disorder affecting , antepartum (Acute) History of genetic disorder (Acute) Supervision of high risk , antepartum (Acute) (Acute) Anxiety (Resolved) Vaginal bleeding (Resolved) s/p PPD # 1 1. routine post delivery care 2. breast feeding- support given 3. rh positive 4. rubella immune
[2019-11-27] MEDS: Citalopram 20 MG Tablet PO (11:38)
[2019-11-27 11:40] VITALS: BP 111/72; PULSE 100; RESP 18; TEMP 36.9
[2019-11-27] MEDS: Prenatal Vits Tablet 1 TABLET PO (13:58)
[2019-11-27 16:35] VITALS: BP 108/71; PULSE 80; RESP 16; TEMP 37
[2019-11-27 21:19] VITALS: BP 105/68; PULSE 76; RESP 14; TEMP 36.6
== END 2019-11-27 23:00 | disposition home or self-care (01) | DRG 807 ==
PROVIDERS: Admitting Provider Obstetrics & Gynecology; Visit Provider Obstetrics & Gynecology
DX: O48.0 Post-term pregnancy (principal); O77.0 Labor and delivery complicated by meconium in amniotic fluid; O76 Abnormality in fetal heart rate and rhythm complicating labor and delivery; O70.1 Second degree perineal laceration during delivery; O99.344 Other mental disorders complicating childbirth; F41.9 Anxiety disorder, unspecified; Z3A.40 40 weeks gestation of pregnancy; Z37.0 Single live birth
CPT/HCPCS: 59025; 59050; 85025; 86850; 86900; 86901; 99218; J7120; G0378; J2405

== ENCOUNTER → 2019-12-03 15:19 | Outpatient (CLI) | payer OTHER, SELFPAY ==
[2019-11-30 16:21] VITALS: BMI 28.0
== END ==
PROVIDERS: Referring Provider Obstetrics & Gynecology; Visit Provider Obstetrics & Gynecology
DX: Z39.1 Encounter for care and examination of lactating mother (principal)
CPT/HCPCS: 96158; 96159

== ENCOUNTER → 2020-01-17 | Outpatient (CLI) | payer OTHER, SELFPAY ==
[2020-01-17 14:31] VITALS: BMI 28.0
[2020-01-23 09:42] LABS: HPV Reflexed? NOT INDICATED
== END | disposition home or self-care (01) ==
LOC: LABSPEC 16:52
PROVIDERS: Referring Provider Obstetrics & Gynecology; Visit Provider Obstetrics & Gynecology
DX: Z12.4 Encounter for screening for malignant neoplasm of cervix (principal)
CPT/HCPCS: 88175; G0145

== ENCOUNTER → 2020-10-06 14:23 | Outpatient (CLI) | payer OTHER, SELFPAY ==
[2020-01-17 14:31] VITALS: BMI 28.0
[2020-10-06 15:24] LABS: hCG Titer Quant., Serum 131 mIU/mL (1-3)
== END ==
PROVIDERS: Referring Provider Obstetrics & Gynecology; Visit Provider Obstetrics & Gynecology
DX: Z34.90 Encounter for supervision of normal pregnancy, unspecified, unspecified trimester (principal)
CPT/HCPCS: 36415; 84702

== ENCOUNTER → 2020-10-08 11:18 | Outpatient (CLI) | payer OTHER, SELFPAY ==
[2020-01-17 14:31] VITALS: BMI 28.0
[2020-10-08 12:13] LABS: hCG Titer Quant., Serum 117 mIU/mL (1-3)
== END ==
PROVIDERS: Referring Provider Obstetrics & Gynecology; Visit Provider Obstetrics & Gynecology
DX: Z34.90 Encounter for supervision of normal pregnancy, unspecified, unspecified trimester (principal)
CPT/HCPCS: 36415; 84702

== ENCOUNTER → 2020-10-10 12:03 | Outpatient (CLI) | payer OTHER, SELFPAY ==
[2020-01-17 14:31] VITALS: BMI 28.0
[2020-10-10 12:46] LABS: hCG Titer Quant., Serum 118 mIU/mL (1-3)
== END ==
PROVIDERS: Obstetrics & Gynecology; Referring Provider Obstetrics & Gynecology; Visit Provider Obstetrics & Gynecology
DX: O20.0 Threatened abortion (principal)
CPT/HCPCS: 36415; 84702

== ENCOUNTER → 2020-10-12 12:10 | Outpatient (CLI) | payer OTHER, SELFPAY ==
[2020-01-17 14:31] VITALS: BMI 28.0
[2020-10-12 13:26] LABS: hCG Titer Quant., Serum 136 mIU/mL (1-3)
== END ==
PROVIDERS: Visit Provider Obstetrics & Gynecology
DX: N91.2 Amenorrhea, unspecified (principal)
CPT/HCPCS: 36415; 84702

== ENCOUNTER → 2020-10-13 13:00 | Outpatient (CLI) | payer OTHER, SELFPAY ==
[2020-01-17 14:31] VITALS: BMI 28.0
--- NOTE | 2020-10-13 13:04 | US_ITS ---
STUDY: FIRST TRIMESTER OBSTETRICAL ULTRASOUND REASON FOR EXAM: Female, 29 years old rule out ectopic LMP: 09/20/2020. TECHNIQUE: Transvaginal TECHNICAL QUALITY: Adequate. PRIOR ULTRASOUND: None. FINDINGS: There is no demonstrated intrauterine gestational sac. There is no demonstrated yolk sac. The placenta is non-visualized. There is no demonstrated embryo ( pole). The estimated gestation age (EGA) by LMP is 3 weeks, 2 days. The estimated date of delivery (LATONYA) by LMP is 06/27/2021. The uterus measures 8 cm x 5.3 cm x 3.8 cm. There is no demonstrated uterine fibroid. The cervix is closed. There is evidence of a partially septated uterus. The endometrium measures 10 mm. The right ovary measures 2.8 cm x 1.7 cm x 1.6 cm. There is no right ovarian cyst. There is no visualized right adnexal mass or complex lesion. The left ovary measures 3.9 cm x 3.4 cm x 2.3 cm. There is evidence of a 2.4 cm x 2 cm x 1.8 cm left ovarian cyst. This may represent a corpus luteum cyst. There is no visualized left adnexal mass or complex lesion. There is a moderate amount of fluid in the cul de sac. US/Transvaginal w/Preg US IMPRESSION: No intrauterine gestation is seen. 2.4 cm x 2 cm x 1.8 cm cyst in the left ovary. Moderate amount of free fluid in the cul-de-sac. An ectopic cannot be ruled out. Correlation with serial beta hCG is recommended. Electronically Signed: Tonny Curry MD at 14:08 EDT , Service support ,
[2020-10-13 17:02] LABS: Absolute Lymphocyte Count 1.39 X10^3/uL (0.83-4.51); Basophil# 0.01 X10^3/uL; Basophil% 0.1 % (0-1); Eosinophil# 0.08 X10^3/uL; Eosinophils% 1.2 % (0-5); Hematocrit 42.4 % (37-47); Hemoglobin 14.5 g/dL (12.0-15.0); Lymphocyte # 1.39 X10^3/ul (4.0); Lymphocyte % 20.2 % (19-41); Mean Corp Hgb Conc 34.2 g/dL (32-36); Mean Corpuscular Hgb 31.5 pg (27.0-32.0); Mean Corpuscular Volume 92.2 fL (81-99); Mean Platelet Vol. 10.3 fl (6.2-12.0); Monocyte# 0.37 X10^3/uL; Monocyte% 5.4 % (0-10); NRBC Flagged by Analyzer 0 % (0-5); Neutrophil # 5.01 X10^3/uL (2.7-7.7); Neutrophil % 72.8 % (47-70); Platelet Count 198 K/mm3 (150-450); RBC Distribution Width CV 12.4 % (11.6-14.6); RBC Distribution Width SD 41.8 fl (35.1-43.9); White Blood Count 6.9 K/mm3 (4.4-11.0)
[2020-10-13 17:23] LABS: ALB/GLOB Ratio 1.2 RATIO (0.9-2.4); AST(SGOT) 11 U/L (15-37); Alanine Aminotransfer ALT/SGPT 21 U/L (13-56); Albumin, Serum 4.5 g/dL (3.2-5.0); Alkaline Phosphatase 83 U/L (45-117); Anion Gap 5 (5-15); BUN 12 mg/dL (7-18); Calcium,Total 9.3 mg/dL (8.5-10.1); Chloride 105 mmol/L (98-107); EST Glomerular Filtration Rate 89 mL/min (>60); Est Glom Filt Rate - Afr Amer 108 mL/min (>60); Globulin 3.8 g/dL (2.2-4.2); Glucose 84 mg/dL (74-106); Potassium 4.1 mmol/L (3.5-5.1); Protein, Total 8.3 g/dL (6.4-8.2); Sodium Level 138 mmol/L (136-145)
[2020-10-13 17:39] LABS: hCG Titer Quant., Serum 157 mIU/mL (1-3)
== END ==
LOC: OPUS 13:03 → US 13:05
PROVIDERS: Referring Provider Obstetrics & Gynecology; Visit Provider Obstetrics & Gynecology
DX: O02.1 Missed abortion (principal); O00.90 Unspecified ectopic pregnancy without intrauterine pregnancy; Z3A.00 Weeks of gestation of pregnancy not specified
CPT/HCPCS: 36415; 76817; 80053; 84702; 85025

== ENCOUNTER → 2020-10-18 09:20 | Outpatient (CLI) | payer OTHER, SELFPAY ==
[2020-10-14 15:35] VITALS: BMI 21.7
[2020-10-18 10:48] LABS: hCG Titer Quant., Serum 155 mIU/mL (1-3)
== END ==
PROVIDERS: Referring Provider Obstetrics & Gynecology; Visit Provider Obstetrics & Gynecology
DX: O02.1 Missed abortion (principal)
CPT/HCPCS: 36415; 84702

== ENCOUNTER → 2020-10-21 07:55 | Outpatient (CLI) | payer OTHER, SELFPAY ==
[2020-10-14 15:35] VITALS: BMI 21.7
[2020-10-21 08:41] LABS: hCG Titer Quant., Serum 49 mIU/mL (1-3)
== END ==
PROVIDERS: Obstetrics & Gynecology; Referring Provider Obstetrics & Gynecology; Visit Provider Obstetrics & Gynecology
DX: O02.1 Missed abortion (principal); Z3A.00 Weeks of gestation of pregnancy not specified
CPT/HCPCS: 36415; 84144; 84702

== ENCOUNTER → 2020-10-28 15:07 | Outpatient (CLI) | payer OTHER, SELFPAY ==
[2020-10-14 15:35] VITALS: BMI 21.7
[2020-10-28 16:06] LABS: hCG Titer Quant., Serum 3 mIU/mL (1-3)
== END ==
PROVIDERS: Referring Provider Obstetrics & Gynecology; Visit Provider Obstetrics & Gynecology
DX: O00.90 Unspecified ectopic pregnancy without intrauterine pregnancy (principal); Z3A.00 Weeks of gestation of pregnancy not specified
CPT/HCPCS: 36415; 84702

== ENCOUNTER → 2020-12-05 11:50 | Outpatient (CLI) | payer OTHER, SELFPAY ==
[2020-10-30 15:58] VITALS: BMI 21.7
--- NOTE | 2020-12-05 11:54 | RAD_ITS ---
STUDY: HYSTEROSALPINGOGRAM. REASON FOR EXAM: Female, 30 years old. Recent ectopic FLUOROSCOPY TIME (if supplied): ( 28 seconds ) minutes/seconds. 2 images were submitted. TECHNIQUE: A hysterosalpingogram was performed by the test engineer nuclear equipment. Imaging was submitted. COMPARISON: None. FINDINGS: The uterus is unremarkable. The fallopian tubes are patent bilaterally with free spill RAD/Salpingogram IMPRESSION: Normal hysterosalpingogram. Electronically Signed: Tonny Curry MD at 12:44 EDT , Service support ,
== END ==
PROVIDERS: Referring Provider Obstetrics & Gynecology; Visit Provider Obstetrics & Gynecology
DX: O00.109 Unspecified tubal pregnancy without intrauterine pregnancy (principal); Z3A.00 Weeks of gestation of pregnancy not specified
CPT/HCPCS: 58340; 74740; Q9967

== ENCOUNTER → 2021-01-05 10:24 | Outpatient (CLI) | payer OTHER, SELFPAY ==
[2020-10-30 15:58] VITALS: BMI 21.7
[2021-01-05 11:57] LABS: hCG Titer Quant., Serum 2423 mIU/mL (1-3)
== END ==
PROVIDERS: Referring Provider Obstetrics & Gynecology; Visit Provider Obstetrics & Gynecology
DX: N91.2 Amenorrhea, unspecified (principal)
CPT/HCPCS: 36415; 84702

== ENCOUNTER → 2021-01-07 10:00 | Outpatient (CLI) | payer OTHER, SELFPAY ==
[2020-10-30 15:58] VITALS: BMI 21.7
[2021-01-07 11:01] LABS: hCG Titer Quant., Serum 5051 mIU/mL (1-3)
== END ==
PROVIDERS: Referring Provider Obstetrics & Gynecology; Visit Provider Obstetrics & Gynecology
DX: N91.2 Amenorrhea, unspecified (principal)
CPT/HCPCS: 36415; 84702

== ENCOUNTER → 2021-01-12 10:07 | Outpatient (CLI) | payer OTHER, SELFPAY ==
[2020-10-30 15:58] VITALS: BMI 21.7
[2021-01-12 11:29] LABS: hCG Titer Quant., Serum 16990 mIU/mL (1-3)
== END ==
PROVIDERS: Referring Provider Nurse Practitioner Women's Health; Visit Provider Nurse Practitioner Women's Health
DX: O36.80X0 Pregnancy with inconclusive fetal viability, not applicable or unspecified (principal); Z3A.00 Weeks of gestation of pregnancy not specified
CPT/HCPCS: 36415; 84702; 86850; 86900; 86901

== ENCOUNTER → 2021-01-20 10:48 | Outpatient (CLI) | payer OTHER, SELFPAY ==
[2020-10-30 15:58] VITALS: BMI 21.7
--- NOTE | 2021-01-20 10:54 | US_ITS ---
STUDY: FIRST TRIMESTER OBSTETRICAL ULTRASOUND REASON FOR EXAM: Female, 30 years old viability LMP: 11/27/2020 TECHNIQUE: Transvaginal TECHNICAL QUALITY: Adequate. PRIOR ULTRASOUND: None. FINDINGS: There is visualization of a single gestational sac in a normal intrauterine position. The mean sac diameter (MSD) measures 24 mm, indicating an estimated gestational age (EGA) of 7 weeks, 2 days. The gestational sac shape is within normal limits. Small adjacent subchorionic hemorrhage) implantation bleed) (. There is a visualized yolk sac. The yolk sac measures 3 mm. The placenta is non-visualized. There is visualization of a live embryo. The crown-rump length (CRL) measures 10 mm, indicating an estimated gestational age (EGA) of 7 weeks, 1 days. There is demonstrated cardiac activity with a heart rate of 137 bpm. The estimated gestation age (EGA) by LMP is 7 weeks, 5 days. The estimated date of delivery (LATONYA) by LMP is . The estimated gestation age (EGA) by US is 7 weeks, 1 days. The estimated date of delivery (LATONYA) by US is . The uterus measures 9.0 x 5.0 x 3.3. There is no demonstrated uterine fibroid. The cervix is closed. The right ovary measures 1.9 x 2.5. There is no right ovarian cyst. There is no visualized right adnexal mass or complex lesion. The left ovary measures 3.3 x 1.5 x 3.0. There is no left ovarian cyst. There is no visualized left adnexal mass or complex lesion. There is no fluid in the cul de sac. US/Transvaginal w/Preg US IMPRESSION: Living intrauterine of 7 weeks 1 day as described above. Electronically Signed: Bob Patino MD at 13:45 EDT Tel , Service support ,
== END ==
PROVIDERS: Referring Provider Nurse Practitioner Women's Health; Visit Provider Nurse Practitioner Women's Health
DX: Z36.89 Encounter for other specified antenatal screening (principal); Z3A.01 Less than 8 weeks gestation of pregnancy
CPT/HCPCS: 76817

== ENCOUNTER → 2021-02-09 10:07 | Outpatient (CLI) | payer OTHER, SELFPAY ==
[2021-02-09 09:24] VITALS: BMI 21.7
[2021-02-09 10:30] LABS: Absolute Lymphocyte Count 1.32 X10^3/uL (0.83-4.51); Absolute Neutrophil Count 4.3 X10^3/uL (2.0-7.7); Basophil# 0.02 X10^3/uL; Basophil% 0.3 % (0-1); Eosinophil# 0.05 X10^3/uL; Eosinophils% 0.8 % (0-5); Hematocrit 39.3 % (37-47); Hemoglobin 13.6 g/dL (12.0-15.0); Lymphocyte # 1.32 X10^3/ul (0.83-4.51); Lymphocyte % 22.1 % (19-41); Mean Corp Hgb Conc 34.6 g/dL (32-36); Mean Corpuscular Hgb 31.1 pg (27.0-32.0); Mean Corpuscular Volume 89.9 fL (81-99); Mean Platelet Vol. 9.4 fl (6.2-12.0); Monocyte# 0.27 X10^3/uL; Monocyte% 4.5 % (0-10); NRBC Flagged by Analyzer 0 % (0-5); Neutrophil # 4.29 X10^3/uL (2.7-7.7); Platelet Count 207 K/mm3 (150-450); RBC Distribution Width CV 11.9 % (11.6-14.6); RBC Distribution Width SD 39.1 fl (35.1-43.9); Red Blood Count 4.37 M/mm3 (4.2-5.4)
[2021-02-09 11:19] LABS: Amphetamine Urine VISTA NEGATIVE (<1000 ng/mL); Barbiturate Urine VISTA NEGATIVE (< 200 ng/mL); Benzodiazepine Urine VISTA NEGATIVE (< 200 ng/mL); Cocaine Urine VISTA NEGATIVE (< 300 ng/mL); Ecstacy Urine VISTA NEGATIVE (< 500 ng/mL); Methadone Urine VISTA NEGATIVE (< 300 ng/mL); PCP Urine VISTA NEGATIVE (< 25 ng/mL); THC Urine VISTA NEGATIVE (< 50 ng/mL); Vista UDS pH Range 5
[2021-02-09 11:23] LABS: NATERA MAILED SPECIMEN
[2021-02-09 11:35] LABS: HIV - WCH Non-Reactive (Nonreactive); Hepatitis B Surface Antigen Non-Reactive (Nonreactive); Hepatitis C Antibody Non-Reactive (Nonreactive); Rubella IgG Reactive (Nonreactive); Syphilis Antibodies Non-reactive
[2021-02-12 03:07] LABS: Chlamydia By Nucleic Acid AMP Negative (Negative)
[2021-02-12 07:58] LABS: Gonococcus By Nucleic Acid AMP Negative (Negative)
== END ==
PROVIDERS: Referring Provider Obstetrics & Gynecology; Visit Provider Obstetrics & Gynecology
DX: O28.5 Abnormal chromosomal and genetic finding on antenatal screening of mother (principal); Z11.3 Encounter for screening for infections with a predominantly sexual mode of transmission; Z3A.00 Weeks of gestation of pregnancy not specified
CPT/HCPCS: 36415; 80307; 85025; 86703; 86762; 86780; 86803; 86850; 86900; 86901; 87086; 87340; 87491; 87591

== ENCOUNTER → 2021-04-10 | Outpatient (CLI) | payer OTHER, SELFPAY | END | disposition home or self-care (01) | PROVIDERS: Physician Assistant Surgical; Referring Provider Obstetrics & Gynecology; Visit Provider Obstetrics & Gynecology | DX: Z36.9 Encounter for antenatal screening, unspecified (principal); R09.81 Nasal congestion | CPT/HCPCS: 36415; 87635; U0003 ==

== ENCOUNTER → 2021-05-04 14:31 | Outpatient (CLI) | payer OTHER, SELFPAY ==
--- NOTE | 2021-05-04 14:31 | US_ITS ---
STUDY: SECOND AND THIRD TRIMESTER OBSTETRICAL ULTRASOUND REASON FOR EXAM: Female, 30 years old growth LMP: 11/27/2020. TECHNIQUE: Transabdominal TECHNICAL QUALITY: Adequate. PRIOR ULTRASOUND: Comparison is made with prior study dated 01/20/2021. FINDINGS: There is a single intrauterine fetus. The fetus is in a transverse lie with the head on the maternal right side. There is demonstrated cardiac activity with a heart rate of 137 bpm. There is a normal amniotic fluid volume. The largest amniotic fluid pocket measures 5 cm x 4.8 cm. The amniotic fluid index (DARIANA) is within normal limits. The placenta is anterior and slightly fundal in location and is not low lying. There are Grade 0 placental changes. The cervix measures 5.3 cm in length. The adnexal regions are not visualized. There is evidence of of the velamentous cord insertion. BIOMETRY: BPD: 5.31 cm: 22 weeks, 0 days HC: 19.73 cm: 21 weeks, 6 days AC: 17.3 cm: 22 weeks, 1 days FL: 3.52 cm: 21 weeks, 0 days CI: 79% FL/BPD: 66% FL/HC: FL/AC: 20% HC/AC: 1.14 age by current US: 21 weeks, 5 days. LATONYA by current US: 09/09/2021. Estimated weight: 454 grams, +/- 68 grams, 14 %. Age by LMP: 22 weeks, 4 days. LATONYA by LMP: 09/03/2021. US/OB Limited With Biometrics IMPRESSION: Single live uterine gestation with a mean gestational age of 21 weeks and 5 days. Velamentous cord insertion is seen. Electronically Signed: Tonny Curry MD at 15:42 EDT , Service support ,
== END ==
PROVIDERS: Referring Provider Obstetrics & Gynecology; Visit Provider Obstetrics & Gynecology
DX: O43.122 Velamentous insertion of umbilical cord, second trimester (principal); Z3A.21 21 weeks gestation of pregnancy
CPT/HCPCS: 76816

== ENCOUNTER → 2021-06-02 08:45 | Outpatient (CLI) | payer OTHER, SELFPAY ==
[2021-06-02 09:02] LABS: Absolute Lymphocyte Count 1.13 X10^3/uL (0.83-4.51); Absolute Neutrophil Count 5.2 X10^3/uL (2.0-7.7); Basophil# 0.01 X10^3/uL; Basophil% 0.1 % (0-1); Eosinophil# 0.11 X10^3/uL; Eosinophils% 1.6 % (0-5); Hematocrit 34.4 % (37-47); Lymphocyte # 1.13 X10^3/ul (0.83-4.51); Lymphocyte % 16.7 % (19-41); Mean Corp Hgb Conc 34.9 g/dL (32-36); Mean Corpuscular Hgb 32.5 pg (27.0-32.0); Mean Corpuscular Volume 93.2 fL (81-99); Mean Platelet Vol. 9.8 fl (6.2-12.0); Monocyte# 0.32 X10^3/uL; Monocyte% 4.7 % (0-10); NRBC Flagged by Analyzer 0 % (0-5); Neutrophil # 5.15 X10^3/uL (2.7-7.7); Neutrophil % 76.5 % (47-70); Platelet Count 190 K/mm3 (150-450); RBC Distribution Width CV 12.5 % (11.6-14.6); Red Blood Count 3.69 M/mm3 (4.2-5.4); White Blood Count 6.8 K/mm3 (4.4-11.0)
[2021-06-02 09:12] LABS: Glucose Challenge Gest 1H 50g 107 mg/dL (70-140)
== END ==
PROVIDERS: Nurse Practitioner Women's Health; Referring Provider Obstetrics & Gynecology; Visit Provider Obstetrics & Gynecology
DX: O09.90 Supervision of high risk pregnancy, unspecified, unspecified trimester (principal); Z3A.00 Weeks of gestation of pregnancy not specified
CPT/HCPCS: 36415; 82950; 85025

== ENCOUNTER 2021-08-14 14:09 | Outpatient (CLI) | payer OTHER, SELFPAY | END 2021-08-14 23:59 | disposition home or self-care (01) | LOC: LABSPEC 10-20 14:09 | PROVIDERS: Visit Provider Obstetrics & Gynecology | DX: Z34.83 Encounter for supervision of other normal pregnancy, third trimester (principal) | CPT/HCPCS: 87081 ==

== ENCOUNTER 2021-08-15 12:03 | Outpatient (CLI) | payer OTHER, SELFPAY | END 2021-08-15 23:59 | disposition short-term general hospital (02) | LOC: LABSPEC 12:03 | PROVIDERS: Visit Provider Obstetrics & Gynecology | DX: R69 Illness, unspecified (principal) ==

== ENCOUNTER 2021-08-28 09:03 | Inpatient (IN) | payer OTHER, SELFPAY ==
[2021-08-28] VITALS (29 sets, daily range): BP systolic 104–133; BP diastolic 56–86; PULSE 71–117; RESP 16; TEMP 36.2–37.1; O2SAT 97–99; BMI 26.4
[2021-08-28] MEDS: 0.9% Saline Lock 10 ML Syringe IV (08:40)
[2021-08-28] MEDS: Lactated Ringers 1,000 ML 50 ML IV (08:50)
[2021-08-28 08:59] LABS: Absolute Lymphocyte Count 1.47 X10^3/uL (0.83-4.51); Absolute Neutrophil Count 9.8 X10^3/uL (2.0-7.7); Basophil# 0.01 X10^3/uL; Basophil% 0.1 % (0-1); Eosinophil# 0.04 X10^3/uL; Eosinophils% 0.3 % (0-5); Hematocrit 37.1 % (37-47); Hemoglobin 13.4 g/dL (12.0-15.0); Lymphocyte # 1.47 X10^3/ul (0.83-4.51); Lymphocyte % 12.4 % (19-41); Mean Corp Hgb Conc 36.1 g/dL (32-36); Mean Corpuscular Hgb 33.2 pg (27.0-32.0); Mean Corpuscular Volume 91.8 fL (81-99); Mean Platelet Vol. 11.3 fl (6.2-12.0); Monocyte# 0.48 X10^3/uL; Monocyte% 4.1 % (0-10); NRBC Flagged by Analyzer 0 % (0-5); Neutrophil % 82.7 % (47-70); Platelet Count 169 K/mm3 (150-450); RBC Distribution Width CV 12.6 % (11.6-14.6); RBC Distribution Width SD 42.6 fl (35.1-43.9); Red Blood Count 4.04 M/mm3 (4.2-5.4); White Blood Count 11.9 K/mm3 (4.4-11.0)
[2021-08-28] MEDS: Lactated Ringers 500 ML 999 ML IV (09:10)
[2021-08-28] MEDS: Oxytocin 30 units/NS 500 ml 30 UNITS/500 ML IV.SOLN IV (09:18)
--- NOTE | 2021-08-28 09:40 | HP.PCM.OB_ITS ---
HPI - General General Date of Admission: 08/28/21 HPI Narrative KATHARINE PINZON, is a 30 @ 39 weeks 1 day who called me at 3 am with contractions. when she arrived she was found to be 3-4 cm dilated (was 2 in office) and swapnil every 5 minutes. She was rechecked at 9 am and found to be 5/80/-1. The decision was made to admit and augment labor Maternal Data Information LATONYA Calculator Estimated Delivery Date Method Current WG Current Estimate 09/03/21 LMP (Certain) 39w 1d Other Estimates 09/07/21 Ultrasound #1 38w 4d [facility] Medical History (Updated 08/28/21 @ 08:02 by Beti Rodrigez) Depression History of genetic disorder Lab test positive for detection of COVID-19 virus Seasonal allergies Home Medications vit,[id number] 1 tab PO DAILY 10/26/18 [History Last Taken 08/27/21] citalopram 40 mg tablet 40 mg PO DAILY #90 tab 03/18/21 [Rx Last Taken Unknown] aspirin 81 mg chewable tablet 81 mg PO DAILY 08/14/21 [History Last Taken Unknown] Allergy/AdvReac Type Severity Reaction Status Date / Time No Known Allergies Allergy Verified 08/26/21 10:33 Family History Father Diabetes Thyroid cancer Surgical History S/P dilation and curettage (~10/27/18) S/P wisdom tooth extraction Social History adopted: No household members: spouse and children housing: house number of children: 1 current occupational status: employed 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[employer] pets and animals: Yes (does not handle cat litter) pets and animals: cat(s) and dog(s) sexually active: Yes Smoking Status: Never smoker second hand exposure: No alcohol intake: current details: occasionally; not while substance use type: does not use caffeine: Yes what type of physical activity do you participate in: aerobics frequency: 3-4 times per week seatbelt use: always do you feel safe at home: Yes additional social history: -Luis Enrique- [employer] Patient works at [employer] History 4 Elective abortions Hx Para 1 Spontaneous abortions 1 Hx # Term Pregnancies 1 Ectopic pregnancies 1 Hx # Pregnancies Multiple births 1 # of living children Past Pregnancies Del. Date Name GA/Weeks Outcome Route Bth Weight Gen Labor Lgth Anesthesia Del Waqasatn Provider FOB Unknown 2018 Trisomy 16 elective Unknown October 2020 ectopic 11/26/19 Ck 40 live - full term vacuum 6lbs 14oz Male epidural [facility] Delivery Date: No notes to display Delivery Date: medication resolution Paulette Bailey Delivery Date: 11/26/19 VAVD decels, lightly stained meconuim, 2 degree laceration Franci Powell Visit Details Expected Delivery Route/Plan consider IOL by 40 weeks due to velamnetous insertion. Labor Preferences- CB/BF classes: no labor support person: Luis Enrique labor intervention preferences: [] pain management options preferred: [] cut cord/dad catch: yes : yes PP control planned: discussed discussed possible routes of delivery and associated risks: [] special requests: [] Plans covid status: non immune, counseled and considering vaccine. flu vaccine: given tdap vaccine: given rhogam: na LARC form signed: yes Problem list reviewed and updated with the most current plan of care details and appropriate orders placed. Relevant counseling for the gestational age provided. Continue routine care and follow up unless otherwise noted in visit notes/problem list details OB Flowsheet Initial Weight: 125 lb Date -?-?-?-?-?-?-?-?-?-?-?-?- EGA Weight BP Urine Prot -?-?-?-?-?-?-?-?--?-?-?-?- Glucose FHR FuHt Pres Dilation -?-?-?-?-?-?-?-?-?-?-?-?- Effaced St Visit Note 02/09/21 -?-?-?-?-?-?-?-?-?-?-?-?- 10w 4d 126 lb (+16 oz) 120/72 -?-?-?-?-?-?-?-?-?-?-?-?- 160 -?-?-?-?-?-?-?-?-?-?-?-?- SM- CRL 2.6cm co ns with LMP 03/09/21 -?-?-?-?-?-?-?-?-?-?-?--?- 14w 4d 129 lb 4 oz (+4 lb 4 oz) 118/74 Negative -?-?-?-?-?-?-?-?-?-?-?-?- Negative 140 -?-?-?-?-?-?-?-?-?-?-?-?- GP - no cramping or bleeding. Anatomy scan ordered. 04/10/21 -?-?-?-?-?-?-?-?-?-?-?-?- 19w 1d 127 lb 8 oz (+2 lb 8 oz) 120/72 Negative -?-?-?-?-?-?-?-?-?-?-?-?- Negative 145 -?-?-?-?-?-?-?-?-?-?-?-?- Sm- no vb lof so me fm 05/06/21 -?-?-?-?-?-?-?-?-?-?-?-?- 22w 6d 134 lb 6 oz (+9 lb 6 oz) 100/70 Negative -?-?-?-?-?-?-?-?-?-?-?-?- Negative 145 22 -?-?-?-?-?-?-?-?-?-?-?-?- GP - no LOF, VB, DFM, ctx. Discussed VCI. Growths q4w. GCT next visit. 06/02/21 -?-?-?-?-?-?-?-?-?-?-?-?- 26w 5d 139 lb 6 oz (+14 lb 6 oz) 112/74 Negative -?-?-?-?-?-?-?-?-?-?-?-?- Negative 141 26 -?-?-?-?-?-?-?-?-?-?-?-?- MH-No Vb, LOF. G ood FM. 28 wk labs wnl. tdap. larc 06/15/21 -?-?-?-?-?-?-?-?-?-?-?-?- 28w 4d 142 lb (+17 lb) 112/76 Negative -?-?-?-?-?-?-?-?-?-?-?-?- Negative 145 28 -?-?-?-?-?-?-?-?-?-?-?-?- SM- no vb lof go od fm nor egular ctx 07/03/21 -?-?-?-?-?-?-?-?-?-?-?-?- 31w 1d 144 lb (+19 lb) 94/66 Negative -?-?-?-?-?-?-?-?-?-?-?-?- Negative 140 30 -?-?-?-?-?-?-?-?-?-?-?-?- SM- no vb lof go od fm no regular ctx 07/15/21 -?-?-?-?-?-?-?-?-?-?-?-?- 32w 6d 146 lb 6 oz (+21 lb 6 oz) 100/60 Negative -?-?-?-?-?-?-?-?-?-?-?-?- Negative 144 32 -?-?-?-?-?-?-?-?-?-?-?-?- -No Vb, LOF. G ood FM. Nausea in pm: will try pepcid. 08/14/21 -?-?-?-?-?-?-?-?-?-?-?-?- 37w 1d 150 lb (+25 lb) 102/66 Negative -?-?-?-?-?-?-?-?-?-?-?-?- Negative 140 37 1 -?-?-?-?-?-?-?-?-?-?-?-?- 60 -2 SM- no vb lof good fm no regular ctx 08/20/21 -?-?-?-?-?-?-?-?-?-?-?-?- 38w 0d 148 lb 6 oz (+23 lb 6 oz) 100/78 Negative -?-?-?-?-?-?-?-?-?-?-?-?- Negative 138 35 Cephalic 2 -?-?-?-?-?-?-?-?-?-?-?-?- 50 -4 JV- gbs ne g, fundal height is measuring low today. DARIANA checked JV- gbs neg, fundal height i s measuring low today. DARIANA checked and is 15cm 08/26/21 -?-?-?-?-?-?-?-?-?-?-?-?- 38w 6d 150 lb 8 oz (+25 lb 8 oz) 110/80 Negative -?-?-?-?-?-?-?-?-?-?-?-?- Negative 141 35 Cephalic 2 -?-?-?-?-?-?-?-?-?-?-?-?- 70 -3 JV- no lof , vaginal bleeding or dec fm. membranes stripped. labor precautions discussed. 08/28/21 -?-?-?-?-?-?-?-?-?-?-?-?- 39w 1d 149 lb 8 oz (+24 lb 8 oz) 130/86 130/86 110/74 110/74 -?-?-?-?-?-?-?-?-?-?-?-?- -?-?-?-?-?-?-?-?-?-?-?-?- ROS Constitutional Constitutional: Denies change in weight, fatigue, fever(s), headache(s), poor appetite or weakness Eyes Eyes: Denies blurry vision, change in vision, seeing flashes or spots in vision ENT HEENT: Denies dizziness, headache(s), loss taste/smell or sore throat Cardiovascular Cardiovascular: Denies chest pain, dizziness, dyspnea, irregular heart rhythm, leg edema, palpitations, rapid heart rate or vomiting Respiratory/Chest Respiratory/Chest: Denies chest tightness, cough, dyspnea or breast pain Gastrointestinal Gastrointestinal: Denies abdominal pain, anorexia, constipation, cramping, diarrhea, hemorrhoids, vomiting or weight changes Genitourinary Genitourinary: Denies dysuria, flank pain, genital lesions, genital pain, urinary frequency or urinary urgency Musculoskeletal Musculoskeletal: Denies back pain, difficulty walking, joint pain, limited range of motion, muscle cramps or numbness Integumentary Integumentary: Denies lesions or unusual bruising Neurologic Neurologic: Denies abnormal movements, abnormal speech, dizziness, numbness, seizure-like activity or syncope Psychiatric Psychiatric: Denies anxiety, behavioral changes, change in appetite, change in libido, cognitive impairment, confusion, depression, difficulty concentrating, hallucinations or suicidal thoughts Endocrine Endocrinology: Denies excessive sweating, polydipsia or polyuria Hematologic/Lymphatic Hematologic/Lymphatic: Denies easy bleeding, easy bruising or lymphadenopathy Allergic/Immunologic Allergic/Immunologic: Denies itchy eyes, lip swelling, seasonal rhinorrhea, rhinitis, throat swelling, tongue swelling, eczemia, wheezing or asthma Vital Signs Vital Signs Vital Signs: 08/28/21 05:08 08/28/21 05:09 08/28/21 05:10 Temperature 98.8 F Temperature Source Temporal Pulse Rate 80 Blood Pressure 130/86 H BP Systolic 130 BP Diastolic 86 Pulse Ox 08/28/21 07:40 08/28/21 07:41 Temperature 98.1 F Temperature Source Pulse Rate 72 Blood Pressure 110/74 BP Systolic 110 BP Diastolic 74 Pulse Ox 97 Weight Weight: 149 lb 8 oz Body Mass Index (BMI) 26.4 Physical Exam Const alert, oriented x3, no apparent distress and healthy appearing General Appearance: cooperative; Negative for anxious HEENT normocephalic Face and Sinus: normal facial exam Eyes EOMs intact bilaterally and no scleral icterus General Eye: normal appearance of both eyes Neck full ROM and supple Lymph Lymphatic: no lymphadenopathy noted Chest Chest: abnormal inspection of the chest Resp normal respiratory effort Effort and Inspection: able to speak in complete sentences Cardio regular rate GI soft to palpation and non-tender Inspection: gravid Palpation: soft; Negative for tender external exam normal Amniotic Fluid: other cx is 5/80/-1, membranes ruptured with clear fluid return. NST reactive category 1 Back/Spine no CVA tenderness Extremity normal to inspection, full ROM and no clubbing, cyanosis or edema General Extremity: Negative for calf tenderness or edema Skin Lesions: no lesions Rashes: no rashes Psych mental status grossly normal Labs Labs Labs: Blood Type A POSITIVE Antibody Screen NEGATIVE Hct 37.1 % (37-47) Hgb 13.4 g/dL (12.0-15.0) Obstetrics US Syphilis Total Ab Non-reactive Rubella IgG Antibody Reactive (Nonreactive) Hep Bs Antigen Non-Reactive (Nonreactive) Neisseria gonorrhoeae DNA (MARIA L) Negative (Negative) HIV 1&2 Antibody Non-Reactive (Nonreactive) C.trachomatis DNA (PCR) Negative (Negative) Glucose 1 Hr 50 gm 107 mg/dL (70-140) Rhogam given: No Miscellaneous Test Assessment & Plan (1) Anxiety disorder affecting , antepartum: COMMENT: Celexa, counseling encouraged; stable (2) Family history of pyloric stenosis: COMMENT: brother and nephew. (3) : QUALIFIERS: Weeks of gestation: 38 weeks Qualified Code(s): Z3A.38 - 38 weeks gestation of COMMENT: nl Past carrier screen done. NIPT low risk. afp negative. GBS neg (4) Supervision of high risk , antepartum: COMMENT: PRR LATONYA:09/03/21, girl Winter PC: Ck. 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 superior right lateral edge growth US q4 weeks starting at 28 weeks, NL US 07/13, 08/11 nl US (7) Lab test positive for detection of COVID-19 virus: COMMENT: 81mg asa and growth US PLAN: Patient presents augmentation of labor, plan management for with pitocin/AROM. Pain management: plans epidural. GBS negative. Management of any complications: none I have reviewed the [facility] and made any clinically relevant updates. Charges/Coding Multi Select Codes Visit Charges Visit Charges: 56093 Init Hosp L3
[2021-08-28] MEDS: fentaNYL-bupivacaine (epidural) 100 ML BAG EPIDURAL (10:14)
[2021-08-28] MEDS: Oxytocin 30 units/NS 500 ml 30 UNITS/500 ML IV.SOLN 334 UNITS IV (11:30)
--- NOTE | 2021-08-28 12:51 | EX.PCM.OBRPT ---
Assessment & Plan (1) Supervision of high risk , antepartum: COMMENT: PRR LATONYA:09/03/21, girl Winter PC: Ck. Spouse:Luis Enrique (2) History of genetic disease: COMMENT: tr16 in previous child, NIPT nl (3) Velamentous insertion of umbilical cord: QUALIFIERS: Trimester: second trimester Qualified Code(s): O43.122 - Velamentous insertion of umbilical cord, second trimester COMMENT: discussed IOL by 40 weeks depending on iraheta score. superior right lateral edge growth US q4 weeks starting at 28 weeks, NL US 07/13, 08/11 nl US (4) Lab test positive for detection of COVID-19 virus: COMMENT: 81mg asa and growth US (5) : QUALIFIERS: Weeks of gestation: 38 weeks Qualified Code(s): Z3A.38 - 38 weeks gestation of COMMENT: nl Past carrier screen done. NIPT low risk. afp negative. GBS neg (6) Family history of pyloric stenosis: COMMENT: brother and nephew. (7) Anxiety disorder affecting , antepartum: COMMENT: Celexa, counseling encouraged; stable Maternal Data Information LATONYA Calculator Estimated Delivery Date Method Current WG Current Estimate 09/03/21 LMP (Certain) 39w 1d Other Estimates 09/07/21 Ultrasound #1 38w 4d Vaginal Delivery Maternal Presentation Maternal Presentation: Active Labor Type of Induction: Pitocin and Amniotomy Operative Information Date of Procedure: 08/28/21 Pre-Operative Diagnosis: 39 weeks 1 day , early labor Post-Operative Diagnosis: 39 weeks 1 day , early labor Type of Anesthesia: Epidural Estimated Blood Loss: 100cc Findings Description of Procedure: Patient began pushing and delivered the head in the PRISCILLA presentation. The head was delivered atraumatically. The anterior and posterior shoulders delivered without complication followed by the rest of the and the was placed on the maternal abdomen. Delayed cord clamping was employed for approximately 60 seconds. Cord was clamped and cut and gentle traction was applied to the cord and the placenta delivered spontaneously immediately following it was noted to be intact with three-vessel cord. The perineum and vagina were inspected and noted to have a very small 1st degree perineal laceration that was repaired with a 2-0 vicryl suture . EBL was 100 cc. Patient and tolerated delivery well. Presentation: Vertex Amniotic Fluid Description: Clear Placental Delivery Description: Spontaneous Placenta Disposition: [facility] Cord Vessel Description: 3 Vessels Cord Entanglement: None A Gender: Female (1 minute): 8 (5 minute): 9 Delayed Cord Clamping: Yes Post Vaginal Delivery Medications Given After Delivery: IV Pitocin Episiotomy Description: None Laceration: Midline and 1st degree Complication Complications: None Multi Select Codes Urinary/Genital Urinary/Genital CPT Codes: 73287 Vaginal Delivery [facility]
--- NOTE | 2021-08-28 12:59 | PCM.DC ---
Discharge Instructions Diet Discharge Diet: No restrictions Activity Discharge Activity: Return to Normal Activity, May Not Drive (while taking narcotic pain medications.) and May Shower May resume sexual activity in: 4-6 weeks Dressing / Incision Call your doctor if your incision/area has: Continuous Slow Oozing, Sudden Increased Bleeding, Increased Pain/ Swelling, Increased Redness and Foul Smelling Discharge Follow Up Care Please Follow Up With: Dunia Hawkins DO When: Call [phone] to make an appointment with your doctor in 6 weeks. If you had elevated blood pressure or 4th degree laceration, you will need to be seen in 2 weeks. Test Results: Test results from this visit will be discussed in further detail at your follow-up appointment, if applicable. Discharge Plan Admission Admit Date/Time: 08/28/21 09:03 Primary Reason for Your Visit: vaginal delivery Attending Provider: Dunia Hawkins Primary Care Provider: Care Physician,No Primary Discharge Orders/Prescriptions Prescriptions: New ibuprofen 800 mg tablet 800 mg PO Q8H PRN (Reason: pain) 7 Days Qty: 30 RF: 0 Continued vit,[id number] 1 TABLET tablet 1 tab PO DAILY RF: 0 citalopram [Celexa] 40 mg tablet 40 mg PO DAILY Qty: 90 RF: 2 Discontinued aspirin 81 mg tablet,chewable 81 mg PO DAILY RF: 0 Referrals / Follow Up: Care Physician,No Primary [Primary Care Provider] - Disposition Disposition (needs filled in before D/C Order can be placed): Home, Self Care
[2021-08-28] MEDS: Citalopram 40 MG TABLET PO (15:10)
[2021-08-28] MEDS: Ibuprofen 600 MG Tablet PO (20:14)
[2021-08-28] MEDS: Acetaminophen 500 MG Tablet 1000 MG PO (23:43)
[2021-08-29 04:44] VITALS: BP 104/52; PULSE 65; RESP 16; TEMP 36.6
[2021-08-29 08:30] VITALS: BP 104/73; PULSE 75; RESP 14; TEMP 36.6
[2021-08-29] MEDS: Citalopram 40 MG TABLET PO (09:09)
[2021-08-29] MEDS: Ibuprofen 600 MG Tablet PO (09:09)
--- NOTE | 2021-08-29 09:49 | PCM.PN.OB ---
Subjective Subjective Patient doing well without complaints. Tolerating PO. Ambulating and voiding without difficulty. Feeding well. Denies chest pain, shortness of breath, calf pain/swelling, fevers, chills, lightheadedness. Objective Data Objective Data Vital Signs: Vital Signs Temp Pulse Resp BP Pulse Ox 97.8 F 75 14 104/73 98 08/29/21 08:30 08/29/21 08:30 08/29/21 08:30 08/29/21 08:30 08/28/21 11:38 Oxygen Delivery Method Room Air Weight: 149 lb 8 oz Body Mass Index (BMI) 26.4 Intake & Output: Intake and Output for Last 24 Hours 08/27/21 08/28/21 08/29/21 23:59 23:59 23:59 Intake Total 1021.83 / 1021.83 Output Total 300 / 300 Balance 721.83 / 721.83 Lab / Micro Data Result Diagrams: 08/28/21 08:40 Labs: Laboratory Results - last 24 hr 08/28/21 08:40: Blood Type A POSITIVE, Antibody Screen NEGATIVE Micro: Microbiology 08/28/21 07:35 Nasal Secretion SARS-CoV-2 Antigen (Rapid) - Final ROS Constitutional Constitutional: Denies chills, fatigue, fever(s), poor appetite or weakness Eyes Eyes: Denies blurry vision, change in vision, seeing flashes or spots in vision ENT HEENT: Denies dizziness, headache(s), loss taste/smell or sore throat Cardiovascular Cardiovascular: Denies chest pain, dizziness, dyspnea, irregular heart rhythm, palpitations or rapid heart rate Respiratory/Chest Respiratory/Chest: Denies chest tightness, cough, dyspnea or breast pain Gastrointestinal Gastrointestinal: Denies abdominal pain, constipation or vomiting Genitourinary Genitourinary: Denies dysuria or flank pain Musculoskeletal Musculoskeletal: Denies difficulty walking, joint pain, limited range of motion or numbness Neurologic Neurologic: Denies abnormal movements, abnormal speech, dizziness, numbness, seizure-like activity or syncope Psychiatric Psychiatric: Denies anxiety, behavioral changes, change in appetite, confusion, depression or suicidal thoughts Physical Exam Const alert, oriented x3 and no apparent distress General Appearance: cooperative and comfortable Resp normal respiratory effort Cardio regular rate GI normal to inspection, nondistended, normoactive bowel sounds GI Narrative: uterus is firm below umbilicus Palpation: soft Bimanual Exam - Adnexa, Other: Negative for cul-de-sac fullness Back/Spine no CVA tenderness and thoraco-lumbar ROM normal Extremity normal to inspection, no clubbing, cyanosis or edema, no calf tenderness and no pedal edema Psych mental status grossly normal, thought process normal, cooperative, affect normal, speech normal, activity/motor behavior normal, denies homicidal ideation and denies suicidal ideation Assessment & Plan (1) Anxiety disorder affecting , antepartum: COMMENT: Celexa, counseling encouraged; stable (2) Family history of pyloric stenosis: COMMENT: brother and nephew. (3) : QUALIFIERS: Weeks of gestation: 38 weeks Qualified Code(s): Z3A.38 - 38 weeks gestation of COMMENT: nl Past carrier screen done. NIPT low risk. afp negative. GBS neg (4) Supervision of high risk , antepartum: COMMENT: PRR LATONYA:09/03/21, girl Winter PC: Ck. 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 superior right lateral edge growth US q4 weeks starting at 28 weeks, NL US 07/13, 08/11 nl US (7) Lab test positive for detection of COVID-19 virus: COMMENT: 81mg asa and growth US PLAN: s/p PPD # 1 1. routine post delivery care 2. breast feeding- support given 3. rh positive 4. rubella immune 5. dc to home
--- NOTE | 2021-08-29 11:45 | CASEMGMT ---
Social Work Assessment Labor and Delivery Unit Date of Referral: 08/28/2021 Time of Referral: 14:42 Referred By: Dr. Hawkins Date of Intervention: 08/29/2021 Time of Intervention: 11:45 Reason for Referral: Mother of baby (MOB) with history of Depression and Anxiety. History obtained from: MOB, Chart, and nursing staff. Household composition: MOB, Odalys Troy and father of baby (FOB), Luis Enrique Troy live in a private home with their son, Ck Troy and now this , Winter Troy. Patient's parent/guardian status: MOB and FOB are and have been together for 5 years. MOB reports to feel safe with FOB. Medical History: MOB with history of Depression and Anxiety. MOB with vaginal delivery at 39 weeks. MOB reports plan to breast feed . was born on 08/28/2021 with apgars of 8 and 9 at 1min and 5min. MOB reports plan is for infant to follow up with Dr. Vera ([facility]) in the community. Educational Status: MOB denies any concerns for comprehension or understanding. Financial Status: MOB reports to be taking 6 weeks off work and plans to return to working for [employer] and is able to return remotely. MOB reports that FOB also works full-time but will have some time off work. MOB denies any financial concerns. Supplies: MOB reports to have all needed supplies for in the home including a car seat and crib. 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 Ck is currently with family and will return to being cared for by family when MOB returns to work. Transportation: MOB denies any issues with transportation. Programs/Agencies Involved: MOB denies any active community programs. Children Services/Legal Issues: MOB denies any children services involvement or history of legal issues. Behavioral Health Issues: Mental Health History: MOB reports history of Anxiety and Depression and to currently be managing mental health with Celexa, ?it works great.? MOB reports to primarily work with [facility] on mental health medication. MOB denies any active counseling. MOB denies history of depression with first . MOB reports that Depression and Anxiety started for patient when patient has first miscarriage before having first child. MOB denies suicidal ideation or history of suicidal thoughts, plans, intents. Substance Use History: MOB denies. Maternal and Drug Screens: MOB with negative tox screen on 02/09/2021. No tox screen on admission. No tox screen for infant. PHQ9: Did not trigger. Family/Social Stressors: Denies. Support Systems: MOB reports to have support from FOB as well family. Depression and Anxiety/Shaken Baby/Safe Sleeping: This professor of social work provided patient with depression and anxiety information as well as shaken baby and safe sleeping along with general resources for [facility]. ASSESSMENT: Met with MOB in room. Introduced self and professor of social work role. MOB agreeable to speak with this professor of social work. FOB currently taking luggage to car as plan is for MOB, FOB and this infant to discharge to home today. MOB with positive and engaged affect. MOB denies any issues or concerns on returning to community. MOB reports to be aware of resources and supports for mental health and to feel that MOB is able to reach out for help if needed. Active support and listening provided. PLAN: to discharge to home with MOB and FOB. No other services requested or indicated. Shamir Lewis MSW, YAZAN
== END 2021-08-29 12:40 | disposition home or self-care (01) | DRG 807 ==
LOC: WPOUT 09:03 → WP 09:03
PROVIDERS: Admitting Provider Obstetrics & Gynecology; Visit Provider Obstetrics & Gynecology
DX: O43.123 Velamentous insertion of umbilical cord, third trimester (principal); Z37.0 Single live birth; O99.344 Other mental disorders complicating childbirth; F41.9 Anxiety disorder, unspecified; O70.0 First degree perineal laceration during delivery; Z3A.39 39 weeks gestation of pregnancy; Z20.822 Contact with and (suspected) exposure to COVID-19; Z79.82 Long term (current) use of aspirin; Z86.16 Personal history of COVID-19
CPT/HCPCS: 59050; 85025; 86850; 86900; 86901; 87426; 99218; J7120; A4216; G0378

== ENCOUNTER → 2022-05-25 | Outpatient (CLI) | payer OTHER, SELFPAY ==
[2022-05-25 16:47] LABS: T4 Free Direct 0.85 ng/dL (0.76-1.46); Thyroid Stim Hormone (TSH) 1.22 uIU/mL (0.358-3.74)
[2022-05-27 16:13] LABS: Thyroid Peroxidase AB 11 IU/mL (0-34)
== END | disposition home or self-care (01) ==
LOC: PAVLAB 14:45
PROVIDERS: Referring Provider Nurse Practitioner Women's Health; Visit Provider Nurse Practitioner Women's Health
DX: F41.9 Anxiety disorder, unspecified (principal); Z13.29 Encounter for screening for other suspected endocrine disorder
CPT/HCPCS: 36415; 84439; 84443; 86376

== ENCOUNTER → 2022-07-31 | Outpatient (CLI) | payer OTHER, SELFPAY ==
[2022-07-31 10:32] LABS: hCG Titer Quant., Serum 778 mIU/mL (1-3)
== END | disposition home or self-care (01) ==
LOC: LAB 09:41
PROVIDERS: Referring Provider Obstetrics & Gynecology; Visit Provider Obstetrics & Gynecology
DX: N91.2 Amenorrhea, unspecified (principal)
CPT/HCPCS: 36415; 84702

== ENCOUNTER → 2022-08-02 | Outpatient (CLI) | payer OTHER, SELFPAY ==
[2022-08-02 13:13] LABS: hCG Titer Quant., Serum 2279 mIU/mL (1-3)
== END | disposition home or self-care (01) ==
LOC: PAVLAB 11:55
PROVIDERS: Referring Provider Obstetrics & Gynecology; Visit Provider Obstetrics & Gynecology
DX: N91.2 Amenorrhea, unspecified (principal)
CPT/HCPCS: 36415; 84702

== ENCOUNTER → 2022-08-05 | Outpatient (CLI) | payer OTHER, SELFPAY ==
--- NOTE | 2022-08-05 13:18 | US_ITS ---
STUDY: FIRST TRIMESTER OBSTETRICAL ULTRASOUND REASON FOR EXAM: Female, 31 years old DATING LMP: Not known. COMPARISON: No relevant prior. TECHNIQUE: Transvaginal scanning was performed with grayscale, B-mode and color Doppler imaging. FINDINGS: Gestational Sac: Gestational sac with normal shape and decidual reaction. Subchronic hemorrhage along the anterior aspect of the gestational sac, surrounding about half the sac diameter. Mean sac diameter 0.70 cm gives gestational age 5 weeks 3 days. pole: Not visible. Amnionic fluid: Amniotic fluid volume within normal limits. Yolk Sac: Normal yolk sac 0.17 cm diameter. Placenta: Not yet visible. FHR: No detectable cardiac activity. Uterus: Measures 7.5 x 5.0 x 3.5 cm. No masses identified. Cervix: Long and closed. Right ovary: Measures 2.6 x 1.8 x 1.5 cm. No concerning mass. Left ovary: Measures 2.0 x 1.4 x 0.9 cm. No concerning mass. Free fluid: None. US/Transvaginal w/Preg US IMPRESSION: Early intrauterine . Gestational sac and yolk sac identified. pole, cardiac activity not yet visible (however this is normal for a gestational sac of this size). Based on mean sac diameter, gestational age 5 weeks 3 days, LATONYA 04/04/2023. Moderate subchorionic hematoma along the anterior aspect of the gestational sac. Electronically Signed: Celso Parson MD at 5:24 EST Reading Location ID and State: [facility] [place] Tel , Service support ,
[2022-08-05 15:24] LABS: hCG Titer Quant., Serum 6305 mIU/mL (1-3)
== END | disposition home or self-care (01) ==
PROVIDERS: Referring Provider Obstetrics & Gynecology; Visit Provider Obstetrics & Gynecology
DX: Z34.91 Encounter for supervision of normal pregnancy, unspecified, first trimester (principal); Z3A.01 Less than 8 weeks gestation of pregnancy
CPT/HCPCS: 36415; 76817; 84702

== ENCOUNTER 2022-08-18 11:27 | Outpatient (CLI) | payer OTHER, SELFPAY ==
--- NOTE | 2022-08-18 11:30 | US_ITS ---
STUDY: FIRST TRIMESTER OBSTETRICAL ULTRASOUND REASON FOR EXAM: Female, 31 years old viability, LMP unknown LMP: Unknown. TECHNIQUE: Transvaginal TECHNICAL QUALITY: Adequate. PRIOR ULTRASOUND: Comparison is made with prior study dated 08/05/2022. FINDINGS: There is visualization of a single gestational sac in a normal intrauterine position. The mean sac diameter (MSD) measures 2.3 cm, indicating an estimated gestational age (EGA) of 7 weeks, 1 days. The gestational sac shape is within normal limits. There is a visualized yolk sac. The yolk sac measures 2.3 mm. The placenta is non-visualized. There is visualization of a live embryo. The crown-rump length (CRL) measures 8.3 mm, indicating an estimated gestational age (EGA) of 6 weeks, 6 days. There is demonstrated cardiac activity with a heart rate of 126 bpm. The estimated gestation age (EGA) by US is 7 weeks, 0 days. The estimated date of delivery (LATONYA) by US is 04/06/2023. The uterus measures 8.6 cm x 5.7 cm x 4.8 cm. Once again, there is a 1 cm x 2 cm x 1 cm subchorionic bleed adjacent to the gestational sac. There is no demonstrated uterine fibroid. The cervix is closed. The right ovary measures 3 cm x 2.4 cm x 1.8 cm. There is no right ovarian cyst. There is no visualized right adnexal mass or complex lesion. The left ovary measures 2.1 cm x 2 cm x 1.5 cm. There is no left ovarian cyst. There is no visualized left adnexal mass or complex lesion. There is no fluid in the cul de sac. US/Transvaginal w/Preg US IMPRESSION: Live intrauterine gestation with a mean gestational age of 7 weeks. Small subchorionic bleed. Electronically Signed: Tonny Curry MD at 12:50 EST ,
== END 2022-08-18 23:59 | disposition home or self-care (01) ==
LOC: US 11:29
PROVIDERS: Referring Provider Obstetrics & Gynecology; Visit Provider Obstetrics & Gynecology
DX: O46.8X1 Other antepartum hemorrhage, first trimester (principal); O41.8X10 Other specified disorders of amniotic fluid and membranes, first trimester, not applicable or unspecified; Z3A.01 Less than 8 weeks gestation of pregnancy
CPT/HCPCS: 76817

== ENCOUNTER → 2022-08-31 | Outpatient (CLI) | payer OTHER, SELFPAY ==
[2022-09-02 22:07] LABS: Chlamydia By Nucleic Acid AMP Negative (Negative)
[2022-09-02 22:37] LABS: Gonococcus By Nucleic Acid AMP Negative (Negative)
== END | disposition home or self-care (01) ==
PROVIDERS: Visit Provider Obstetrics & Gynecology
DX: Z34.90 Encounter for supervision of normal pregnancy, unspecified, unspecified trimester (principal)
CPT/HCPCS: 87491; 87591

== ENCOUNTER → 2022-09-21 | Outpatient (CLI) | payer OTHER, SELFPAY ==
[2022-09-21 15:50] LABS: Absolute Lymphocyte Count 1.79 X10^3/uL (0.83-4.51); Basophil# 0.01 X10^3/uL; Basophil% 0.1 % (0-1); Eosinophil# 0.07 X10^3/uL; Eosinophils% 0.8 % (0-5); Hematocrit 39.6 % (37-47); Hemoglobin 13.4 g/dL (12.0-15.0); Lymphocyte # 1.79 X10^3/ul (0.83-4.51); Lymphocyte % 21.5 % (19-41); Mean Corp Hgb Conc 33.8 g/dL (32-36); Mean Corpuscular Hgb 30.9 pg (27.0-32.0); Mean Corpuscular Volume 91.2 fL (81-99); Mean Platelet Vol. 9.6 fl (6.2-12.0); Monocyte# 0.39 X10^3/uL; Monocyte% 4.7 % (0-10); NRBC Flagged by Analyzer 0 % (0-5); Neutrophil # 6.04 X10^3/uL (2.7-7.7); Neutrophil % 72.5 % (47-70); Platelet Count 219 K/mm3 (150-450); RBC Distribution Width CV 12.1 % (11.6-14.6); RBC Distribution Width SD 40.6 fl (35.1-43.9); Red Blood Count 4.34 M/mm3 (4.2-5.4); White Blood Count 8.3 K/mm3 (4.4-11.0)
[2022-09-21 17:10] LABS: HIV - WCH Non-Reactive (Nonreactive); Hepatitis B Surface Antigen Non-Reactive (Nonreactive); Hepatitis C Antibody Non-Reactive (Nonreactive); Rubella IgG Reactive (Nonreactive); Syphilis Antibodies Non-reactive
[2022-09-21 17:32] LABS: NATERA MAILED SPECIMEN
== END | disposition home or self-care (01) ==
PROVIDERS: Referring Provider Obstetrics & Gynecology; Visit Provider Obstetrics & Gynecology
DX: O09.90 Supervision of high risk pregnancy, unspecified, unspecified trimester (principal)
CPT/HCPCS: 36415; 85025; 86703; 86762; 86780; 86803; 86850; 86900; 86901; 87086; 87088; 87340

== ENCOUNTER → 2022-12-22 | Outpatient (CLI) | payer OTHER, SELFPAY ==
--- NOTE | 2022-12-22 16:56 | US_ITS ---
EXAM: US , LIMITED CLINICAL INDICATION: Placenta cyst, growth TECHNIQUE: Real-time limited ultrasound of the maternal uterus with image documentation. COMPARISON: No relevant prior studies available. FINDINGS: FETUS: Single intrauterine gestation. GESTATIONAL AGE: Composite gestational age is 25 weeks 4 days. LATONYA: 04/12/2023. EFW: Estimated weight is 737 g corresponding to 30th percentile. BPD: 26 weeks 2 days. HC: 26 weeks 3 days. AC: 25 weeks 0 days. FL: 23 weeks 5 days. POSITION: Cephalic presentation. HEART RATE: heart rate is 153 bpm. PLACENTA: The placenta is anterior and not low lying. No placenta previa. AMNIOTIC FLUID: Amniotic fluid volume qualitatively appears normal. Largest vertical pocket is 4.5 cm. VASCULATURE: Small venous lakes are seen in the placenta. The largest is in the superior aspect of the placenta and measures approximately 1.5 x 1.6 x 1.1 cm.. US/OB Limited With Biometrics IMPRESSION: Single live intrauterine at approximately 25 weeks 4 days. No specific abnormality. Small venous lakes in the placenta. Electronically Signed: Behzad Frias MD at 7:07 EDT ,
== END | disposition home or self-care (01) ==
LOC: US 16:55
PROVIDERS: Referring Provider Registered Nurse; Visit Provider Registered Nurse
DX: O43.199 Other malformation of placenta, unspecified trimester (principal)
CPT/HCPCS: 76816

== ENCOUNTER → 2023-01-14 | Outpatient (CLI) | payer OTHER, SELFPAY ==
[2023-01-14 09:32] LABS: Absolute Lymphocyte Count 1.33 X10^3/uL (0.83-4.51); Absolute Neutrophil Count 4.6 X10^3/uL (2.0-7.7); Basophil# 0.02 X10^3/uL; Basophil% 0.3 % (0-1); Eosinophil# 0.09 X10^3/uL; Eosinophils% 1.4 % (0-5); Hematocrit 33.8 % (37-47); Hemoglobin 11.7 g/dL (12.0-15.0); Lymphocyte # 1.33 X10^3/ul (0.83-4.51); Lymphocyte % 20.8 % (19-41); Mean Corp Hgb Conc 34.6 g/dL (32-36); Mean Corpuscular Hgb 32.1 pg (27.0-32.0); Mean Corpuscular Volume 92.6 fL (81-99); Mean Platelet Vol. 9.6 fl (6.2-12.0); Monocyte# 0.38 X10^3/uL; Monocyte% 5.9 % (0-10); NRBC Flagged by Analyzer 0 % (0-5); Neutrophil # 4.55 X10^3/uL (2.7-7.7); Neutrophil % 71.1 % (47-70); Platelet Count 172 K/mm3 (150-450); RBC Distribution Width CV 12.5 % (11.6-14.6); RBC Distribution Width SD 42.5 fl (35.1-43.9); Red Blood Count 3.65 M/mm3 (4.2-5.4); White Blood Count 6.4 K/mm3 (4.4-11.0)
[2023-01-14 09:49] LABS: Glucose Challenge Gest 1H 50g 110 mg/dL (70-140)
[2023-01-14 10:22] LABS: HIV - WCH Non-Reactive (Nonreactive); Syphilis Antibodies Non-reactive
== END | disposition home or self-care (01) ==
LOC: PAVLAB 09:18
PROVIDERS: Registered Nurse; Visit Provider Obstetrics & Gynecology
DX: O09.90 Supervision of high risk pregnancy, unspecified, unspecified trimester (principal); Z3A.00 Weeks of gestation of pregnancy not specified
CPT/HCPCS: 36415; 82950; 85025; 86703; 86780

== ENCOUNTER 2023-01-17 10:55 | Outpatient (CLI) | payer OTHER, SELFPAY ==
[2023-01-17 11:17] VITALS: BP 101/55; PULSE 81; TEMP 36.2
[2023-01-17 11:31] VITALS: BMI 26.6
[2023-01-17 11:43] LABS: Color, Urine Yellow (Yellow); Glucose, Dipstick Normal (Normal); Ketone-Dipstick Negative (Negative); Leukocyte Esterase-Dipstick Negative /ul (Negative); Nitrite-Dipstick Negative (Negative); Occult Blood-Urine Negative /ul (Negative); Protein-Dipstick Negative (Negative); Urine Bilirubin Dipstick Negative (Negative); Urine Clarity Sl. Cloudy (Clear); Urine Urobilinogen Normal (Normal)
--- NOTE | 2023-01-21 07:17 | OB.TRI.PN_ITS ---
Progress Notes Date of Service: 01/17/23 Progress Note: Patient presents at 28+5 for triage evaluation secondary to pain in lower quadrant that was sharp and consistent when standing. cervix closed FHT: 145 Moderate variability reactive no decelerations category I tracing. Comfort: Contractions Assessment and plan: Reactive NST, reassuring maternal and status patient discharged to home to follow-up in office for next appt. See problem list details for additional plan information. Laboratory Studies: Laboratory Tests 01/17/23 Range/Units 11:30 Urine Color Yellow (Yellow) Urine Clarity Sl. Cloudy (Clear) Urine pH 8.0 (5.0 - 8.0) Ur Specific [place] 1.010 (1.002-1.030) Urine Protein Negative (Negative) mg/dl Urine Glucose (UA) Normal (Normal) mg/dl Urine Ketones Negative (Negative) mg/dl Urine Occult Blood Negative (Negative) /ul Urine Nitrite Negative (Negative) Urine Bilirubin Negative (Negative) mg/dL Urine Urobilinogen Normal (Normal) mg/dl Ur Leukocyte Esterase Negative (Negative) /ul Charges/Coding Procedures Urinary/Genital [id number]: 13600-23 non-stress test Interp Multi Select Codes Urinary/Genital Urinary/Genital CPT Codes: 12771-79 non-stress test Interp
== END 2023-01-17 12:35 | disposition home or self-care (01) ==
LOC: WPOUT 11:05 → WP 11:06
PROVIDERS: Referring Provider Registered Nurse; Visit Provider Registered Nurse
DX: O99.891 Other specified diseases and conditions complicating pregnancy (principal); Z3A.28 28 weeks gestation of pregnancy; R10.30 Lower abdominal pain, unspecified
CPT/HCPCS: 59025; 59050; 81002; 87077; 87086; 87088; 87186

== ENCOUNTER → 2023-03-04 | Outpatient (CLI) | payer OTHER, SELFPAY ==
--- NOTE | 2023-03-04 08:58 | US_ITS ---
STUDY: SECOND AND THIRD TRIMESTER OBSTETRICAL ULTRASOUND - LIMITED REASON FOR EXAM: Female, 32 years old growth LMP: June 30, 2022. PRIOR ULTRASOUND: Comparison is made with prior study dated December 22, 2022. TECHNIQUE: TECHNICAL QUALITY: Adequate. FINDINGS: There is a single intrauterine fetus. The fetus is in a cephalic presentation. There is demonstrated cardiac activity with a heart rate of 137 bpm. There is a normal amniotic fluid volume. The largest amniotic fluid pocket measures 5.4 cm. The amniotic fluid index (DARIANA) is 12.6 cm. The placenta is anterior in location and is not low lying. There are Grade 2 placental changes. The cervix measures 4. cm in length. BIOMETRY: BPD: 8.64 cm: 34 weeks, 6 days HC: 31.05 cm: 34 weeks, 5 days AC: 31.85 cm: 35 weeks, 5 days FL: 6.81 cm: 35 weeks, 0 days Age by LMP: 35 weeks, 2 days. LATONYA by LMP: April 06, 2023. age by prior US: 35 weeks, 6 days. LATONYA by prior US: April 02, 2023. age by current US: 34 weeks, 5 days. LATONYA by current US: April 10, 2022. Estimated weight: 2701 grams, +/- 405 grams, 55 percentile. US/OB Limited With Biometrics IMPRESSION: Single live intrauterine gestation with a mean gestational age of 35 weeks and 6 days. Measurements obtained today following within the normal expected range. Electronically Signed: Tonny Curry MD at 11:09 EDT ,
== END | disposition home or self-care (01) ==
LOC: US 08:56
PROVIDERS: Referring Provider Obstetrics & Gynecology; Visit Provider Obstetrics & Gynecology
DX: O26.849 Uterine size-date discrepancy, unspecified trimester (principal); Z3A.00 Weeks of gestation of pregnancy not specified
CPT/HCPCS: 76816

== ENCOUNTER 2023-04-08 10:55 | Inpatient (IN) | payer OTHER, SELFPAY ==
[2023-04-08] VITALS (30 sets, daily range): BP systolic 110–130; BP diastolic 67–83; PULSE 70–113; TEMP 36.3–37.5; O2SAT 98–100; BMI 28.3
[2023-04-08] MEDS: Lactated Ringers 1,000 ML 50 ML IV (11:45)
[2023-04-08 11:56] LABS: Absolute Lymphocyte Count 1.38 X10^3/uL (0.83-4.51); Basophil# 0.01 X10^3/uL; Basophil% 0.1 % (0-1); Eosinophil# 0.03 X10^3/uL; Eosinophils% 0.4 % (0-5); Hematocrit 38.7 % (37-47); Hemoglobin 13.2 g/dL (12.0-15.0); Lymphocyte # 1.38 X10^3/ul (0.83-4.51); Lymphocyte % 17.6 % (19-41); Mean Corp Hgb Conc 34.1 g/dL (32-36); Mean Corpuscular Hgb 30.8 pg (27.0-32.0); Mean Corpuscular Volume 90.4 fL (81-99); Mean Platelet Vol. 10.5 fl (6.2-12.0); Monocyte# 0.45 X10^3/uL; Monocyte% 5.7 % (0-10); NRBC Flagged by Analyzer 0 % (0-5); Neutrophil # 5.96 X10^3/uL (2.7-7.7); Neutrophil % 75.8 % (47-70); Platelet Count 185 K/mm3 (150-450); RBC Distribution Width CV 13.2 % (11.6-14.6); RBC Distribution Width SD 42.8 fl (35.1-43.9); Red Blood Count 4.28 M/mm3 (4.2-5.4); White Blood Count 7.9 K/mm3 (4.4-11.0)
[2023-04-08] MEDS: Penicillin G Pot 5,000,000 UNITS in 0.9% Normal Saline (100mL MB+) 100 ML 150 UNITS IV (11:57)
[2023-04-08] MEDS: Oxytocin 15 Units/NS 250ml 15 UNITS/250 ML IV.SOLN 2 UNITS IV (12:27)
[2023-04-08 12:28] LABS: Syphilis Antibodies Non-reactive
[2023-04-08] MEDS: 0.9% Normal Saline Single 100 ML IV.SOLN. INTRA-UTER (13:00)
[2023-04-08] MEDS: LACTATED RINGERS 500 ML 999 ML IV ×2 (13:50→18:00)
[2023-04-08] MEDS: fentaNYL-bupivacaine (epidural) 100 ML BAG EPIDURAL ×2 (14:43→19:58)
[2023-04-08] MEDS: Penicillin G 3,000,000 Units 50 ML 100 UNITS IV ×2 (16:39→20:29)
[2023-04-08] MEDS: Ondansetron 4 MG/2 ML Vial IV (17:39)
--- NOTE | 2023-04-08 17:39 | HP.PCM.OB_ITS ---
HPI - General General Date of Admission: 04/08/23 HPI Narrative KATHARINE PINZON, is a 32 F who presents for IOL secondary to anhydramnios- dariana was immeasurable in the office today. was head down Maternal Data Information LATONYA Calculator Estimated Delivery Date Method Current WG Current Estimate 04/06/23 Ultrasound #1 40w 2d [facility] Medical History (Updated 04/08/23 @ 17:[address] Carina Ramirez MD) Depression History of genetic disorder Lab test positive for detection of COVID-19 virus Oligohydramnios Placental abnormality Seasonal allergies Vaginal delivery Home Medications vits,calcium no.78-iron fumarate-folic acid 29 mg-1 mg tablet 1 tab PO DAILY 10/26/18 [History Last Taken 08/27/21] famotidine 20 mg tablet (Pepcid) 20 mg PO DAILY heartburn #30 tabs 03/15/23 [Rx Last Taken 04/08/23 09:00 20 mg] citalopram 20 mg tablet (Celexa) 20 mg PO DAILY anxiety/depression #90 tabs 03/23/23 [Rx Last Taken 04/07/23 21:00 20 mg] Allergy/AdvReac Type Severity Reaction Status Date / Time No Known Allergies Allergy Verified 04/08/23 14:16 Family History Father Diabetes Thyroid cancer Brother Pyloric stenosis Surgical History S/P dilation and curettage (~10/27/18) S/P wisdom tooth extraction Social History adopted: No household members: spouse and children housing: house number of children: 2 current occupational status: employed 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[employer] pets and animals: Yes (does not handle cat litter) pets and animals: cat(s) and dog(s) history of recent travel: No sexually active: Yes Smoking Status: Never smoker second hand exposure: No alcohol intake: current details: occasionally; not while substance use type: does not use well-balanced diet: about half the time caffeine: Yes Type: coffee Number of servings: 1 eating out: 1-3 times/week during the past year weight has: increased > 10 lbs what type of physical activity do you participate in: aerobics frequency: 3-4 times per week duration: 30-45 minutes/day kit/jewish: Shinto seatbelt use: always do you feel safe at home: Yes additional social history: -Luis Enrique- [employer] Patient works at [employer] History 5 Elective abortions Hx Para 2 Spontaneous abortions 1 Hx # Term Pregnancies 2 Ectopic pregnancies 1 Hx # Pregnancies Multiple births 1 # of living children 2 Past Pregnancies Del. Date Name GA/Weeks Outcome Route Bth Weight Infant Gen Labor Lgth Anesthesia Del Locatn Provider FOB Unknown 2018 Trisomy 16 elective Unknown October 2020 ectopic 11/26/19 Ck 40 live - full term vacuum 6lbs 14oz Male epidural [facility] Luis Enrique 08/28/21 Winter 39 live - full term 5lbs 11oz Female [facility] Velde Delivery Date: Last Updated by: Paulette Bailey ELECTRICAL AND INSTRUMENT TECHNICIAN, ELECTRICAL AND INSTRUMENT TECHNICIAN-C medication resolution Delivery Date: 11/26/19 Last Updated by: Franci Powell VAVNoble decels, lightly stained meconuim, 2 degree laceration Visit Details Expected Delivery Route/Plan Labor Preferences- CB/BF classes: [] labor support person: Luis Enrique, mom(Jacqui), marcela linn(separator operator/friend) labor intervention preferences: open, WANTS THE MIRROR, interested in laboring in tub. pain management options preferred:open cut cord/dad catch: dad cut, MOMMA CATCH : PP control planned: discussed possible routes of delivery and associated risks: [] special requests: [] Plans Covid status: declined Flu vaccine: obtained Tdap vaccine: obtained 02/09 Rhogam: na LARC form signed: signed Problem list reviewed and updated with the most current plan of care details and appropriate orders placed. Relevant counseling for the gestational age provided. Continue routine care and follow up unless otherwise noted in visit notes/problem list details OB Flowsheet Initial Weight: Not Recorded Date -?-?-?-?-?-?-?-?-?-?-?-?- EGA Weight BP Urine Prot -?-?-?-?-?-?-?-?-?-?-?-?- Glucose FHR FuHt Pres Dilation -?-?-?-?-?-?-?-?-?-?-?-?- Effaced St Visit Note 08/31/22 -?-?-?-?-?-?-?-?-?-?-?-?- 8w 6d 133 lb 113/72 -?-?-?-?--?-?-?-?-?-?-?-?- 170 -?-?-?-?-?-?-?-?-?-?-?-?- SM- CRL cons 2 c m with LMP 09/21/22 -?-?-?-?-?-?-?-?-?-?-?-?- 11w 6d 113 lb 2 oz 133 lb 2 oz 106/72 -?-?-?-?-?-?-?-?-?-?-?-?- 160 -?-?-?-?-?-?-?-?-?-?-?-?- SM- no vb crampi ng 10/20/22 -?-?-?-?-?-?-?-?-?-?-?-?- 16w 0d 135 lb 8 oz 112/74 Nega tive -?-?-?-?-?-?-?-?-?-?-?-?- Negative 147 -?-?-?-?-?-?-?-?-?-?-?-?- MH-No Vb or cram ping. Can't remember to take med tid so changed to buspirone 7.5 bid and new Rx sent. 11/18/22 -?-?-?-?-?-?-?-?-?-?-?-?- 20w 1d 140 lb 105/66 Negative -?-?-?-?-?-?-?-?-?-?-?-?- Negative 150 -?-?-?-?-?-?-?-?-?-?-?-?- JV- no lof, vagi nal bleeding, or cramping, no complaints today. has rpt scan scheduled for placental cyst. 12/17/22 -?-?-?-?-?-?-?-?--?-?-?-?- 24w 2d 142 lb 2 oz 105/80 Nega tive -?-?-?-?-?-?-?-?-?-?-?-?- Negative 150 24 -?-?-?-?-?-?-?-?-?-?-?-?- LC-changed to ce cathleen, feeling improved. LC-changed to celexa, feelin g improved.no vb/ctx/lof. good fm. 01/14/23 -?-?-?-?-?-?-?-?-?-?-?-?- 28w 2d 148 lb 108/64 Negative -?-?-?-?-?-?-?-?-?-?--?-?- Negative 140 28 -?-?-?-?-?-?-?-?-?-?-?-?- KW-+fm. no lof/v b/ctx. doing well on Celexa. reviewed labs from today. nl glucose 01/28/23 -?-?-?-?-?-?-?-?-?-?-?-?- 30w 2d 148 lb 4 oz 116/57 -?-?-?-?-?-?-?-?-?-?-?-?- 140 30 -?-?-?-?-?-?-?-?-?-?-?-?- SM- no vb lof go od fm no regular ctx 02/09/23 -?-?-?-?-?-?-?-?-?-?-?-?- 32w 0d 150 lb 105/63 Trace -?-?-?-?-?-?-?-?-?-?-?-?- Negative 145 32 -?-?-?-?-?-?-?-?-?-?-?-?- LC- no vb/ctx/lo f. good fm. tdap today. reviewed labor pref. 02/25/23 -?-?-?-?-?-?-?-?-?-?-?-?- 34w 2d 151 lb 8 oz 102/68 Trac e -?-?-?-?-?-?-?-?-?-?-?-?- Negative 156 29 -?-?-?-?-?-?-?-?-?-?-?-?- JV- measuring sm aller today. will order a growth scan for next week. likely positional as has been measuring normal other weeks. 03/11/23 -?-?-?-?-?-?-?-?-?-?-?-?- 36w 2d 155 lb 2 oz 109/61 Nega tive -?-?-?-?-?-?-?-?-?-?-?-?- Negative 155 34 Cephalic 0 -?-?-?-?-?-?-?-?-?-?-?-?- JV- normal growt h scan and dariana. still measuring small but was in 55th% 03/15/23 -?-?-?-?-?-?-?-?-?-?-?-?- 36w 6d 156 lb 4 oz 110/70 -?-?-?-?-?-?-?-?-?-?-?-?- 150 36 Cephalic 1 -?-?-?-?-?-?-?-?-?-?-?-?- SM- no vb lof go od fm no regular ctx 03/23/23 -?-?-?-?-?-?-?-?-?-?-?-?- 38w 0d 152 lb 8 oz 108/67 -?-?-?-?-?-?-?-?-?-?-?-?- 147 37 Cephalic 1 -?-?-?-?-?-?-?-?-?-?-?-?- 60 -2 JV- no lof , vaginal bleeding, or dec fm. no complaints today. 04/01/23 -?-?-?-?-?-?-?-?-?-?-?-?- 39w 2d 154 lb 100/64 Negative -?-?-?-?-?-?-?-?-?-?-?-?- Negative 150 39 Cephalic 1 .5 -?-?-?-?-?-?-?-?-?-?-?-?- 60 SM- no v b lof good fm no reuglar ctx 04/06/23 -?-?-?-?-?-?-?-?-?-?-?-?- 40w 0d 157 lb 8 oz 112/76 -?-?-?-?-?-?-?-?-?-?-?-?- 138 40 Cephalic 1.5 -?-?-?-?-?-?-?-?-?-?-?-?- 60 -2 LC- no vb/ ctx/lof. good fm. 41 week iol set up for 04/13 at 7am 04/08/23 -?-?-?-?-?-?-?-?-?--?-?-?- 40w 2d 156 lb 110/77 -?-?-?-?-?-?-?-?-?-?-?-?- 140 37 Cephalic 2 -?-?-?-?-?-?-?-?-?-?-?-?- 60 -2 SM- no vb lof good fm no regular ctx membranes swept- bedside DARIANA done and 0 cm of fluid measurable. recommend immediate IOL NST FHR Rate Baby A Baseline: 130 Variability:: Moderate Accelerations:: 15 x 15 Decelerations:: None NST Reactive:: Yes FHR Category:: Category I Uterine Activity:: irregular ROS Constitutional Constitutional: Reports systems reviewed and no addt'l complaints, except as documented Eyes Eyes: Denies change in vision ENT HEENT: Reports systems reviewed and no addt'l complaints, except as documented; Denies headache(s) Cardiovascular Cardiovascular: Reports systems reviewed and no addt'l complaints, except as documented; Denies chest pain or dyspnea Respiratory/Chest Respiratory/Chest: Reports systems reviewed and no addt'l complaints, except as documented Gastrointestinal Gastrointestinal: Reports systems reviewed and no addt'l complaints, except as documented; Denies abdominal pain Genitourinary Genitourinary: Reports systems reviewed and no addt'l complaints, except as documented, contractions Details: present (irregular) and movement Details: present; Denies dysuria or genital lesions Musculoskeletal Musculoskeletal: Reports systems reviewed and no addt'l complaints, except as documented Neurologic Neurologic: Reports systems reviewed and no addt'l complaints, except as docume nted Endocrine Endocrinology: Reports systems reviewed and no addt'l complaints, except as documented Vital Signs Vital Signs Vital Signs: 04/08/23 11:51 04/08/23 11:51 04/08/23 11:53 Temperature Temperature Source Pulse Rate 79 82 Blood Pressure 122/78 H BP Systolic 122 BP Diastolic 78 Pulse Ox 04/08/23 11:53 04/08/23 11:58 04/08/23 11:58 Temperature Temperature Source Pulse Rate 78 Blood Pressure BP Systolic BP Diastolic Pulse Ox 98 99 04/08/23 11:51 04/08/23 11:51 04/08/23 13:20 Temperature 99.0 F Temperature Source Temporal Tympanic Pulse Rate Blood Pressure BP Systolic BP Diastolic Pulse Ox 04/08/23 13:20 04/08/23 13:47 04/08/23 13:47 Temperature 98.1 F Temperature Source Pulse Rate 79 Blood Pressure 129/82 H BP Systolic 129 BP Diastolic 82 Pulse Ox 04/08/23 14:36 04/08/23 14:36 04/08/23 14:35 Temperature Temperature Source Pulse Rate 75 Blood Pressure 119/81 H BP Systolic 119 BP Diastolic 81 Pulse Ox 99 04/08/23 14:41 04/08/23 14:41 04/08/23 14:40 Temperature Temperature Source Pulse Rate 87 Blood Pressure 130/83 H BP Systolic 130 BP Diastolic 83 Pulse Ox 100 04/08/23 14:45 04/08/23 14:45 04/08/23 14:46 Temperature Temperature Source Pulse Rate 78 82 Blood Pressure 122/75 H BP Systolic 122 BP Diastolic 75 Pulse Ox 04/08/23 14:46 04/08/23 14:51 04/08/23 14:51 Temperature Temperature Source Pulse Rate 85 Blood Pressure 116/70 BP Systolic 116 BP Diastolic 70 Pulse Ox 99 04/08/23 14:51 04/08/23 14:56 04/08/23 14:56 Temperature Temperature Source Pulse Rate 102 H Blood Pressure 116/71 BP Systolic 116 BP Diastolic 71 Pulse Ox 100 04/08/23 14:56 04/08/23 14:56 04/08/23 15:32 Temperature Temperature Source Pulse Rate 97 Blood Pressure 124/68 H BP Systolic 124 BP Diastolic 68 Pulse Ox 100 04/08/23 15:32 04/08/23 16:01 04/08/23 16:01 Temperature Temperature Source Pulse Rate 70 85 Blood Pressure 110/67 BP Systolic 110 BP Diastolic 67 Pulse Ox 04/08/23 16:08 04/08/23 16:08 04/08/23 17:27 Temperature Temperature Source Pulse Rate 96 Blood Pressure 116/72 113/71 BP Systolic 116 113 BP Diastolic 72 71 Pulse Ox 04/08/23 17:27 04/08/23 17:27 04/08/23 17:27 Temperature Temperature Source Pulse Rate 89 95 Blood Pressure BP Systolic BP Diastolic Pulse Ox 100 Weight Weight: 154 lb 8.705 oz Body Mass Index (BMI) 28.3 Physical Exam Const alert, oriented x3, no apparent distress and healthy appearing HEENT normocephalic and moist oral mucous membranes Head and Scalp: atraumatic Neck full ROM, no lymphadenopathy, supple and thyroid normal General: trachea midline Lymph Lymphatic: no lymphadenopathy noted Chest inspection of chest normal Resp normal respiratory effort Cardio regular rate GI normal to inspection, nondistended, normoactive bowel sounds, soft to palpation and non-tender Inspection: gravid external exam normal Manual OB Exam: estimated gestational size appropriate, presentation cephalic, dilated, effaced and station Extremity normal to inspection General Extremity: Negative for edema Skin no rashes or lesions noted Neuro no focal motor deficits and deep tendon reflexes 2+ bilaterally Motor Exam: strength 5/5 throughout and clonus absent Psych mental status grossly normal Labs Labs Labs: Blood Type A POSITIVE Antibody Screen NEGATIVE Hct 38.7 % (37-47) Hgb 13.2 g/dL (12.0-15.0) Obstetrics US Syphilis Total Ab Non-reactive Rubella IgG Antibody Reactive (Nonreactive) Hep Bs Antigen Non-Reactive (Nonreactive) Chlamydia DNA (MARIA L) Negative (Negative) Neisseria gonorrhoeae DNA (MARIA L) Negative (Negative) HIV 1&2 Antibody Non-Reactive (Nonreactive) Glucose 1 Hr 50 gm 110 mg/dL (70-140) Rhogam given: No Miscellaneous Test Assessment & Plan (1) Encounter for induction of labor: (2) Anhydramnios in third trimester: COMMENT: immediate IOL pit fb (3) GBS (group B streptococcus) UTI complicating : COMMENT: treat in labor (4) Placental cyst affecting : COMMENT: [facility] growth ordered 12/17 12/29:placenta cyst are placenta lakes. d/w Glenna Hickey will d/c growth scans unless otherwise clinically indicated. (5) Supervision of high risk , antepartum: COMMENT: [id number], LATONYA 04/06/23 surprise PC Winter Stover Luis Enrique (6) : QUALIFIERS: Weeks of gestation: 40 weeks Qualified Code(s): Z3A.40 - 40 weeks gestation of COMMENT: NIPT low risk, decline carrier testing (7) Anxiety: COMMENT: counseling encouraged, buspar d/c'd started celexa with improved symptoms. 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
--- NOTE | 2023-04-08 17:42 | PN_ITS ---
Progress Note current tracing: FHT: 130 Moderate variability reactive no decelerations category I tracing [place]: q 2-3 Contractions reviewed tracing abnormalities since last note: A/P: arom clear fluid minimal
[2023-04-08] MEDS: Nalbuphine 10 MG/ML Ampul 5 MG IV (19:13)
[2023-04-08] MEDS: DiphenhydrAMINE 50 MG/ML Syringe IV (21:05)
[2023-04-09] VITALS (13 sets, daily range): BP systolic 102–138; BP diastolic 42–79; PULSE 69–99; RESP 16–18; TEMP 36.4–37.2; O2SAT 96–100
--- NOTE | 2023-04-09 00:14 | OP.PCM_ITS ---
Assessment & Plan (1) Encounter for induction of labor: COMMENT: SM 40 IOL anhydramnios (2) Anhydramnios in third trimester: COMMENT: immediate IOL pit fb (3) GBS (group B streptococcus) UTI complicating : COMMENT: treat in labor (4) Placental cyst affecting : COMMENT: [facility] growth ordered 12/17 12/29:placenta cyst are placenta lakes. d/w Glenna Hickey will d/c growth scans unless otherwise clinically indicated. (5) Supervision of high risk , antepartum: COMMENT: [id number], LATONYA 04/06/23 surprise PC Ck Winter Luis Enrique (6) : QUALIFIERS: Weeks of gestation: 40 weeks Qualified Code(s): Z3A.40 - 40 weeks gestation of COMMENT: NIPT low risk, decline carrier testing (7) Anxiety: COMMENT: counseling encouraged, buspar d/c'd started celexa with improved symptoms. 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 Maternal Data Information LATONYA Calculator Estimated Delivery Date Method Current WG Current Estimate 04/06/23 Ultrasound #1 40w 3d Vaginal Delivery Operative Information Date of Procedure: 04/09/23 Pre-Operative Diagnosis: see a/p diagnoses Post-Operative Diagnosis: same Surgery / Procedure Performed: Spontaneous Vaginal Delivery Type of Anesthesia: Epidural Special Medications: none Estimated Blood Loss: 200 Fluids Replaced: crystalloid Findings Description of Procedure: Patient began pushing and delivered the head in the PRISCILLA presentation. The head was delivered atraumatically . The anterior and posterior shoulders delivered without complication followed by the rest of the infant and the infant was placed on the maternal abdomen. Delayed cord clamping was employed for approximately 60 seconds. Cord was clamped and cut and gentle traction was applied to the cord and the placenta delivered spontaneously immediately following it was noted to be intact with three-vessel cord. The perineum and vagina were inspected and noted to have no laceration. EBL was 200 cc. Patient and tolerated delivery well. Amniotic Fluid Description: Clear Placental Delivery Description: Spontaneous Placenta Disposition: [facility] Cord Vessel Description: 3 Vessels Cord Entanglement: None Delayed Cord Clamping: Yes Post Vaginal Delivery Medications Given After Delivery: IV Pitocin Episiotomy Description: None Complication Complications: None Procedures Urinary/Genital [id number]: [id number] Vaginal Delivery [facility]
--- NOTE | 2023-04-09 00:15 | DCINST_ITS ---
Discharge Instructions Diet Discharge Diet: No restrictions Activity Discharge Activity: Return to Normal Activity, May Not Drive (while taking narcotic pain medications.) and May Shower May resume sexual activity in: 4-6 weeks Dressing / Incision Call your doctor if your incision/area has: Continuous Slow Oozing, Sudden Increased Bleeding, Increased Pain/ Swelling, Increased Redness and Foul Smelling Discharge Follow Up Care Please Follow Up With: Carina Ramirez MD When: Call [phone] to make an appointment with your doctor in 6 weeks. If you had elevated blood pressure or 4th degree laceration, you will need to be seen in 2 weeks. Test Results: Test results from this visit will be discussed in further detail at your follow- up appointment, if applicable. Discharge Plan Admission Admit Date/Time: 04/08/23 10:55 Attending Provider: Carina Ramirez Primary Care Provider: Care Physician,Dulce Primary Discharge Orders/Prescriptions Prescriptions: No Action famotidine [Pepcid] 20 mg tablet 20 mg PO DAILY Qty: 30 6RF citalopram [Celexa] 20 mg tablet 20 mg PO DAILY Qty: 90 4RF vit,[id number] 1 TABLET tablet 1 tab PO DAILY Referrals / Follow Up: Care Physician,No Primary [Primary Care Provider] - Disposition Disposition (needs filled in before D/C Order can be placed): Home, Self Care
[2023-04-09] MEDS: Oxytocin 15 Units/NS 250ml 15 UNITS/250 ML IV.SOLN 83 UNITS IV (01:05)
[2023-04-09] MEDS: Naproxen 500 MG Tablet PO ×2 (09:12→21:03)
[2023-04-09] MEDS: Citalopram 20 MG Tablet PO (11:09)
[2023-04-09] MEDS: Acetaminophen 500 MG Tablet 1000 MG PO (13:00)
--- NOTE | 2023-04-09 19:05 | CASEMGMT ---
Social Work Assessment Labor and Delivery Unit Date of Referral: 04/09/2023 Time of Referral: 3:27 Referred By: James Date of Intervention: 04/09/2023 Time of Intervention: 17:55 Reason for Referral: Mother of baby (MOB) with history of Depression and Anxiety. History obtained from: MOB, chart Household composition: MOB, Odalys Troy and father of baby (FOB), Luis Enrique Troy live in a private home with their son, Ck (3) Winter (1.5) and now new baby Donavon Landaverdebie. Patient's parent/guardian status: MOB and FOB are and have been together for 6 years. MOB denies safety concerns. Medical History: MOB denies any medical concerns and had adequate care. MOB plans to breast feed infant. Infant, Donavon, 7.2 lbs with 8/9 apgars. MOB denies any medical concerns regarding baby. Educational Status: No concerns. Financial Status: MOB denies financial concerns. Supplies: MOB reports to have all needed supplies for in the home including a car seat and crib. Childcare/Caregiver(s): MOB plans to be primary caregiver and family will assist when she returns to work after 12 weeks. Transportation: MOB denies any issues with transportation. Programs/Agencies Involved: MOB denies any active community programs. Children Services/Legal Issues: MOB denies any children services involvement or history of legal issues. Behavioral Health Issues: Mental Health History: MOB reports history of Anxiety and Depression and to currently be managing mental health with Celexa. MOB denies any active counseling. MOB denies history of depression. MOB denies suicidal ideation or history of suicidal thoughts, plans, intents. MOB reports willingness to seek mental health assistance as needed. Substance Use History: MOB denies. Tox Screens: None Support Systems: MOB reports to have support from FOB and family Depression/Anxiety: Education provided, parents receptive and given resources and information. Shaken Baby: Education provided, parents receptive. Safe Sleeping: Education provided, parents receptive. ASSESSMENT: MOB and FOB present in the room. Parents responded appropriately and were receptive to information and resources. No immediate concerns or needs at this time. PLAN: to discharge to home with MOB and FOB. No other services requested or indicated. Jackelyn Toussaint [employer], [employer]EL DEPARTMENT MANAGER
[2023-04-10 02:19] VITALS: BP 120/69; PULSE 59; RESP 16; TEMP 36.6; O2SAT 96
[2023-04-10 08:27] VITALS: BP 106/55; PULSE 66; RESP 18; TEMP 36.5; O2SAT 97
[2023-04-10] MEDS: Naproxen 500 MG Tablet PO ×2 (08:51→20:37)
--- NOTE | 2023-04-10 10:09 | PCM.PN.OB ---
Subjective Subjective Patient doing well without complaints. Tolerating PO. Ambulating and voiding without difficulty. feeding well. Denies chest pain, shortness of breath, calf pain/swelling, fevers, chills, lightheadedness. Objective Data Objective Data Vital Signs: Vital Signs Temp Pulse Resp BP Pulse Ox O2 Del Method 97.7 F L 66 18 106/55 L 97 Room Air 04/10/23 08:27 04/10/23 08:27 04/10/23 08:27 04/10/23 08:27 04/10/23 08:27 04/10/23 08:27 Oxygen Delivery Method Room Air Weight: 154 lb 8.705 oz Body Mass Index (BMI) 28.3 Intake & Output: Intake and Output for Last 24 Hours 04/08/23 04/09/23 04/10/23 23:59 23:59 23:59 Intake Total 2558.18 / 2558.18 467.66 / 467.66 Output Total 1450 / 1750 1350 / 1350 Balance 1108.18 / 808.18 -882.34 / -882.34 Lab / Micro Data 04/08/23 11:45 ROS Constitutional Constitutional: Reports systems reviewed and no addt'l complaints, except as documented Cardiovascular Cardiovascular: Reports systems reviewed and no addt'l complaints, except as documented Respiratory/Chest Respiratory/Chest: Reports systems reviewed and no addt'l complaints, except as documented Gastrointestinal Gastrointestinal: Reports systems reviewed and no addt'l complaints, except as documented Physical Exam Const alert, oriented x3 and no apparent distress HEENT Head and Scalp: atraumatic Resp normal respiratory effort GI soft to palpation and non-tender Bimanual Exam - Vag & Uterus: uterus non-tender Uterus Palpation: uterus fundus firm (below Umbilicus) Assessment & Plan (1) Vaginal delivery: COMMENT: SM 40 IOL anhydramnios PLAN: Plan s/p PPD # 1 1. routine post delivery care 2. breast feeding- support given 3. rh positive 4. rubella immune
[2023-04-10] MEDS: Citalopram 20 MG Tablet PO (11:32)
[2023-04-10 13:27] VITALS: BP 113/56; PULSE 67; RESP 18; TEMP 36.8; O2SAT 97
[2023-04-10] MEDS: Senna/Docusate Sodium 1 Tablet PO (20:33)
[2023-04-10 20:35] VITALS: BP 113/83; PULSE 70; RESP 16; TEMP 36.8; O2SAT 97
[2023-04-11 02:05] VITALS: BP 123/80; PULSE 86; RESP 16; TEMP 36.3
[2023-04-11] MEDS: Acetaminophen 500 MG Tablet 1000 MG PO (04:14)
--- NOTE | 2023-04-11 07:43 | PCM.PN.OB ---
Subjective Subjective Patient doing well without complaints. Tolerating PO. Ambulating and voiding without difficulty. feeding well. Denies chest pain, shortness of breath, calf pain/swelling, fevers, chills, lightheadedness. Objective Data Objective Data Vital Signs: Vital Signs Temp Pulse Resp BP Pulse Ox O2 Del Method 97.3 F L 86 16 123/80 H 97 Room Air 04/11/23 02:05 04/11/23 02:05 04/11/23 02:05 04/11/23 02:05 04/10/23 20:35 04/11/23 02:05 Oxygen Delivery Method Room Air Weight: 154 lb 8.705 oz Body Mass Index (BMI) 28.3 Intake & Output: Intake and Output for Last 24 Hours 04/09/23 04/10/23 04/11/23 23:59 23:59 23:59 Intake Total 467.66 / 467.66 Output Total 1350 / 1350 Balance -882.34 / -882.34 Lab / Micro Data 04/08/23 11:45 ROS Constitutional Constitutional: Reports systems reviewed and no addt'l complaints, except as documented Cardiovascular Cardiovascular: Reports systems reviewed and no addt'l complaints, except as documented Respiratory/Chest Respiratory/Chest: Reports systems reviewed and no addt'l complaints, except as documented Gastrointestinal Gastrointestinal: Reports systems reviewed and no addt'l complaints, except as documented Physical Exam Const alert, oriented x3 and no apparent distress HEENT Head and Scalp: atraumatic Resp normal respiratory effort GI soft to palpation and non-tender Bimanual Exam - Vag & Uterus: uterus non-tender Uterus Palpation: uterus fundus firm (below Umbilicus) Assessment & Plan (1) Vaginal delivery: COMMENT: SM 40 IOL anhydramnios PLAN: Plan s/p PPD # 2 1. routine post delivery care 2. breast feeding- support given 3. rh positive 4. rubella immune
[2023-04-11 08:11] VITALS: BP 103/54; PULSE 66; RESP 16; TEMP 36.2
== END 2023-04-11 09:20 | disposition home or self-care (01) | DRG 807 ==
PROVIDERS: Admitting Provider Obstetrics & Gynecology; Referring Provider Obstetrics & Gynecology; Visit Provider Obstetrics & Gynecology
DX: O41.03X0 Oligohydramnios, third trimester, not applicable or unspecified (principal); Z37.0 Single live birth; O99.344 Other mental disorders complicating childbirth; F32.A Depression, unspecified; F41.9 Anxiety disorder, unspecified; Z3A.40 40 weeks gestation of pregnancy; Z86.16 Personal history of COVID-19; O43.193 Other malformation of placenta, third trimester
CPT/HCPCS: 59025; 59050; 85025; 86780; 86850; 86900; 86901; 99221; J7120; G0378; J2405

== ENCOUNTER → 2023-05-16 | Outpatient (CLI) | payer OTHER, SELFPAY ==
[2023-05-23 11:08] LABS: HPV APTIMA, High Risk Negative (Negative)
== END | disposition home or self-care (01) ==
LOC: LABSPEC 15:35
PROVIDERS: Referring Provider Registered Nurse; Visit Provider Registered Nurse
DX: Z12.4 Encounter for screening for malignant neoplasm of cervix (principal)
CPT/HCPCS: 87624; 88175; G0145

== ENCOUNTER → 2024-01-04 | Outpatient (CLI) | payer OTHER, SELFPAY ==
[2024-01-04 11:05] LABS: ALB/GLOB Ratio 1.1 RATIO (0.9-2.4); AST(SGOT) 14 U/L (15-37); Alanine Aminotransfer ALT/SGPT 24 U/L (13-56); Alkaline Phosphatase 77 U/L (45-117); Anion Gap 5 (5-15); BUN 20 mg/dL (7-18); BUN/Creat Ratio 25.6 RATIO (10-20); Calcium,Total 8.9 mg/dL (8.5-10.1); Chloride 107 mmol/L (98-107); Cholesterol 187 mg/dL (200); Creatinine, Serum 0.78 mg/dL (0.55-1.02); EST Glomerular Filtration Rate 90 mL/min (>60); Est Glom Filt Rate - Afr Amer 109 mL/min (>60); Globulin 3.5 g/dL (2.2-4.2); Glucose 91 mg/dL (74-106); High Density Lipoprotein 73 mg/dL; Potassium 4.3 mmol/L (3.5-5.1); Protein, Total 7.5 g/dL (6.4-8.2); Sodium Level 137 mmol/L (136-145); Triglycerides 45 mg/dL; Very Low Density Lipoprotein 9 mg/dL (5-40)
[2024-01-05 16:33] LABS: Thyroid Stim Hormone (TSH) 0.64 uIU/mL (0.358-3.74)
== END | disposition home or self-care (01) ==
PROVIDERS: Referring Provider Registered Nurse; Visit Provider Registered Nurse
DX: R53.83 Other fatigue (principal); R63.5 Abnormal weight gain
CPT/HCPCS: 36415; 80053; 80061; 83036; 84443